=== PATIENT | female | born 1965 | race Caucasian/White ===

== ENCOUNTER → 2021-09-27 15:03 | Outpatient (BNVA) | payer OTHER, MEDICARE, SELFPAY | PROVIDERS: PCP Family Medicine | DX: N39.41 Urge incontinence (principal) | CPT/HCPCS: 51798; 99212 ==

== ENCOUNTER 2021-12-11 10:31 | Outpatient (REF) | payer OTHER, MEDICARE, SELFPAY ==
[2021-12-11 13:27] LABS: Binax Internal Control QC Valid; Binax Now Covid-19 Ag Negative (Negative)
== END 2021-12-11 10:32 | disposition home or self-care (01) ==
LOC: HO.LAB 10:31
PROVIDERS: Visit Provider Internal Medicine
DX: Z20.822 Contact with and (suspected) exposure to COVID-19 (principal)
CPT/HCPCS: C9803

== ENCOUNTER 2021-12-18 07:26 | Outpatient (REF) | payer OTHER, MEDICARE, SELFPAY ==
[2021-12-18 07:58] LABS: COVID-19 Test Negative (Negative)
== END 2021-12-18 07:27 | disposition home or self-care (01) ==
LOC: HO.LAB 07:26
PROVIDERS: Visit Provider Internal Medicine
DX: Z20.822 Contact with and (suspected) exposure to COVID-19 (principal)
CPT/HCPCS: 87635; C9803

== ENCOUNTER 2022-02-19 10:46 | Outpatient (REF) | payer OTHER, SELFPAY ==
--- NOTE | ~2022-02-19 | MM_ITS ---
EXAMINATION: BONE DENSITOMETRY CLINICAL INDICATION: Age-related osteoporosis without current pathological fracture. COMPARISON: Previous BD dated 01/04/2020 and baseline BD dated 03/17/2012. TECHNIQUE: Using a [employer] DXA System (software version: 13.1) manufactured by [employer], dual-energy x-ray absorptiometry was performed of the lumbar spine and left hip. The images are of good technical quality. Summary results are attached. FINDINGS: AP SPINE L1-L4: Current: BMD 0.799 g/cm2, Z-score -1.5, T-score -3.2, osteoporosis, 5.6% decrease from previous, 12.6% decrease from baseline (<5% change is not significant). Prior: BMD 0.846 g/cm2. Baseline: BMD 0.914 g/cm2. LEFT FEMUR, NECK: Current: BMD 0.618 g/cm2, Z-score -1.5, T-score -3.0, osteoporosis. Prior: BMD 0.574 g/cm2. Baseline: BMD 0.668 g/cm2. LEFT FEMUR, TOTAL: Current: BMD 0.599 g/cm2, Z-score -2.0, T-score -3.2, osteoporosis, 4.0% increase from previous, 0.7% increase from baseline (<5% change is not significant). Prior: BMD 0.576 g/cm2. Baseline: BMD 0.595 g/cm2. IDENTIFIED RISK FACTORS: Rheumatoid arthritis. Parental hip fracture. Menopause. Hysterectomy. Bilateral oophorectomy. HISTORY OF FRACTURE: None listed. MEDICATIONS: Vitamin D. MM/XR DEXA axial skeleton IMPRESSION: 1. DIAGNOSIS: Osteoporosis based on the lowest T-score value of -3.2 in the lumbar spine and total femur applying World Health Organization criteria. 2. 10-YEAR FRACTURE RISK PREDICTION, FRAX: Major osteoporotic fracture (clinical spine, forearm, hip or shoulder) 25.6%. Hip fracture 5.2%. 3. Treatment Recommendations: NOF guidelines recommend consideration for treatment in postmenopausal women and men age 50 and older presenting with the following: -A hip or vertebral (clinical or morphometric) fracture. -T-score less than or equal to -2.5 at the femoral neck or spine after appropriate evaluation to exclude secondary causes. -Low bone mass at the hip or spine and a 10-year fracture probability by FRAX of greater than or equal to 3% for hip fracture or greater than or equal to 20% for major osteoporotic fracture based on the [place] adapted WHO algorithm. 4. Other Recommendations: All treatment decisions require clinical judgment and consideration of individual patient factors, including patient preferences, comorbidities, previous drug use, risk factors not captured in the FRAX model (e.g. frailty, falls, vitamin D deficiency, increased bone turnover, interval significant decline in bone density) and possible under or overestimation of fracture risk by FRAX. Additional medical evaluation for secondary cause of low bone mineral density may be appropriate. FUTURE SCAN RECOMMENDATION: People with diagnosed cases of osteoporosis or at high risk for fracture should have regular bone mineral density tests. For patients eligible for Medicare, routine testing is allowed once every 2 years. The testing frequency can be increased to one year for patients who have rapidly progressing disease, those who are receiving or discontinuing medical therapy to restore bone mass, or have additional risk factors.
== END 2022-02-19 10:47 | disposition home or self-care (01) ==
LOC: HO.MAMMO 10:46
PROVIDERS: PCP Family Medicine; Visit Provider Family Medicine
DX: M81.8 Other osteoporosis without current pathological fracture (principal)
CPT/HCPCS: 77080

== ENCOUNTER 2022-05-26 14:46 | Emergency (ER) | payer MEDICARE, SELFPAY ==
--- NOTE | ~2022-05-26 | CT_ITS ---
EXAMINATION: CT ANGIOGRAM NECK WITH CONTRAST CT ANGIOGRAM BRAIN WITH CONTRAST CLINICAL INFORMATION: Left-sided weakness for 12 hours. COMPARISON: None. TECHNIQUE: Test bolus sequences followed by intravenous administration 100 mL of Omnipaque 350. Helical imaging was performed in the axial plane from the thoracic inlet to the skull vertex. Delayed postcontrast imaging of the head was also performed. The data was processed at the medical technologist chemistry workstation for generation of MIP sequences. Angled MIPs and volume rendered reformatted images were also generated at an offline 3D workstation. Stenoses are assessed in accordance with NASCET criteria unless otherwise indicated. This CT examination was performed using dose optimization techniques as appropriate, variously including the following: *Automated exposure control *Adjustment of mA and/or kV according to patient size (this includes techniques or standardized protocols for targeted exams where dose is matched to indication/reason for exam; i.e. extremities or head) *Use of iterative reconstruction technique DLP: 2047 mGy-cm FINDINGS: Head CT: There is no intracranial hemorrhage, large acute infarction, or mass lesion. The ventricles are normal in size and configuration without evidence of hydrocephalus. No abnormal enhancement is seen on the postcontrast images. The dural venous sinuses are normally opacified. The visualized paranasal sinuses and mastoid air cells are clear. Neck CTA: The major neck arteries are patent without stenosis or occlusion. Head CTA: There is no evidence of proximal vessel occlusion or significant arterial stenosis. No aneurysm is seen. Non-vascular findings: There is heterogeneous attenuation of the thyroid gland. The upper lungs are clear without significant consolidation. Pleural parenchymal thickening is seen at the left lung apex. The cervical spine is intact without significant degenerative changes. Esophagus is patulous and distended with air. CT/CT angio head neck IMPRESSION: No acute intracranial abnormality. Major head or neck arteries are patent without significant stenosis or occlusion.
[2022-05-26 14:54] VITALS: BP 148/88; PULSE 80; RESP 18; TEMP 36.8; O2SAT 97; BMI 17.4
[2022-05-26 15:05] LABS: MANUAL DIFF FLAG NO
[2022-05-26 15:12] LABS: Basophils Percent Auto 0.7 % (0-2); Eosinophils Absolute Auto 0.1 X10*3/uL (0.0-0.4); Hematocrit 43.3 % (37.0-47.0); Imm Gran Abs Auto 0.01 X10*3/uL (0.00-0.03); Imm Gran Pct Auto 0.2 % (0.0-0.4); Lymphocytes Absolute Auto 1.7 X10*3/uL (1.2-4.9); Lymphocytes Percent Auto 27.4 % (20-40); Mean Corpuscular HGB Conc 32.3 g/dl (31.0-35.0); Mean Corpuscular Hemoglobin 28.6 pg (27.0-33.0); Mean Corpuscular Volume 88.4 fL (80.0-98.0); Mean Platelet Volume 10.5 fL (9.4-12.3); Monocytes Absolute Auto 0.6 X10*3/uL (0.1-1.2); Neutrophils Absolute Auto 3.6 x10*3/uL (2.0-8.3); Neutrophils Percent Auto 59.7 % (45-73); Platelet Count 239 X10*3/uL (160-400); Red Cell Distribution Width 12.7 % (11.0-16.0); White Blood Count 6.1 X10*3/uL (4.8-10.8)
[2022-05-26 15:23] LABS: Anion Gap 14 (12-20); Blood Urea Nitrogen 14 mg/dL (9-16); Calcium 9.5 mg/dL (8.4-10.2); Carbon Dioxide 24 mmol/L (22-29); Chloride 106 mmol/L (96-108); Creatinine Clr Calc Pharmacy 60.1; Estimated Glomerular Filt Rate > 60; Glucose Random 97 mg/dL (60-115); Potassium 4.5 mmol/L (3.3-5.1); Sodium 139 mmol/L (135-145)
--- NOTE | 2022-05-26 15:54 | ED_ITS ---
HPI - Neuro Symptoms/Deficit General Chief Complaint: Neuro Symptoms/Deficit Stated Complaint: L hand weakness sent from urgent care Time Seen by Provider: 05/26/22 15:54 Source: patient Mode of arrival: ambulatory Limitations: no limitations History of Present Illness HPI Narrative: 56 yo female with hx of GERD, migraines, urinary incontinence comes in with c/o waking up around 5 am and her L hand doesn't work no other symptoms no trauma L hand no overuse activities all symptoms localized to L hand - she is R handed Onset (ago): hour(s) (woke up at 5am with symptoms) Location: other (L hand) History of same: No Severity: mild Quality: weak Relieving factors: none Exacerbating factors: none Context: sudden onset On Anticoagulants: No Associated symptoms: denies other symptoms Treatments Prior to Arrival: none Related Data Home Medications Medication Instructions Recorded Confirmed cholecalciferol (vitamin D3) 50 50 mcg PO DAILY 09/27/21 mcg (2,000 unit) capsule ibuprofen 800 mg tablet 800 mg PO DAILY PRN pain 09/27/21 omeprazole 20 mg capsule,delayed 20 mg PO DAILY 09/27/21 release oxycodone 5 mg tablet 5 mg PO BID PRN 09/27/21 pramipexole 0.5 mg tablet 0.5 mg PO TID 09/27/21 sumatriptan succinate 100 mg tablet 100 mg PO DIRECTED 09/27/21 sumatriptan succinate 50 mg tablet 50 mg PO 09/27/21 Previous Rx's Medication Instructions Recorded solifenacin 10 mg tablet (Vesicare) 10 mg PO DAILY 90 days #90 tabs 09/27/21 Allergies Allergy/AdvReac Type Severity Reaction Status Date / Time Penicillins [PENICILLINS] Allergy Intermediate RASH/SHAKES, Verified 09/27/21 15:19 hives amoxicillin [Prevpac] Allergy Unknown Unknown Verified 09/27/21 15:19 clarithromycin [Prevpac] Allergy Unknown Unknown Verified 09/27/21 15:19 lansoprazole [Prevpac] Allergy Unknown Unknown Verified 09/27/21 15:19 penicillin V Allergy Unknown hives and Verified 09/27/21 15:19 shakes tramadol Allergy Unknown Unknown Verified 09/27/21 15:19 Review of Systems Review of Systems: Constitutional : No Weight loss, No Fever, No Chills, No Fatigue, No Malaise ENT/Mouth : No sore throat, No Rhinorrhea Eyes: No Eye Pain, No Swelling, No Redness Cardiovascular : No Chest Pain, No SOB, No Dyspnea on Exertion, No Orthopnea, No Edema, No Palpitations Respiratory : No Cough, No Sputum, No Wheezing Gastrointestinal : No Nausea, No Vomiting, No Diarrhea, No Constipation, No abdominal Pain, No Hematochezia, No Melena Genitourinary : No Dysuria, No Urinary Frequency, No Hematuria, Musculoskeletal : No joint pain, No Myalgias, No Joint Swelling Skin : No Skin Lesions, No rash Neuro : pos Weakness, No Numbness, No Dizziness, No Headache Psych : No Anxiety/Panic, No Depression Heme/Lymph: No Bruising, No Bleeding,No Lymphadenopathy Endocrine : No Polyuria, No Polydipsia All other systems reviewed and are negative [facility] Past Medical History Medical History Abdominal hyperesthesia Anemia Breast cancer Constipation GERD (gastroesophageal reflux disease) Hematuria Seropositive rheumatoid arthritis Tubular adenoma of colon Surgical History History of surgery Social History Social History Alcohol intake: never Patient Tobacco Use Status: Never used Tobacco Advance Directives: No Advance Directives Information Provided: No Patient : No Physical Exam Vital Signs: Vital Signs: Last Vital Signs Temp 98.7 F 05/26/22 17:08 Pulse 76 05/26/22 17:08 Resp 14 05/26/22 17:08 BP 142/68 H 05/26/22 17:08 Pulse Ox 96 05/26/22 17:08 O2 Del Method 05/26/22 17:08 BMI result Body Mass Index 17.4 Appearance: Alert. Oriented X3. No acute distress. Eyes: Pupils equal, round and reactive to light. ENT: Pharynx normal. Neck: Normal inspection. Neck supple. CVS: Normal heart rate and rhythm. Pulses normal. Respiratory: No respiratory distress. Breath sounds normal. Abdomen: Soft and nontender. Skin: Skin warm and dry. Normal skin color. Normal skin turgor. Extremities: No lower extremity edema. No calf ttp Neuro: Oriented X 3. CN2-12 intact, gait normal, L hand wrist drop otherwise strength 5/5 weakness distal to wrist. No sensory deficit. Course Course Course Narrative: no acute findings. stable for DC - no evidence of stroke isolated to wrist seems peripheral will place on aspirin daily Procedures Orthopedic Splinting/Casting Injury #1: Side: left Upper Extremity Injury Location: wrist Upper Extremity Immobilizer: wrist splint MDM - Neuro Symptoms/Deficit MDM Narrative Medical decision making narrative: 56 yo female with hx of GERD, migraines, urinary incontinence comes in with c/o L hand weakness distal to the wrist it appears wrist drop in nature and more peripheral but no risk factors for this. Will obtain labs, EKG for afib, CTA for stroke. Dispo per results and findings. Lab Data Result diagrams: 05/26/22 15:01 05/26/22 15:01 Labs: Lab Results 05/26/22 05/26/22 Range/Units 15:01 15:01 WBC 6.1 (4.8-10.8) X10*3/uL RBC 4.90 (4.20-5.50) X10*6/uL Hgb 14.0 (12.0-16.0) g/dl Hct 43.3 (37.0-47.0) % MCV 88.4 (80.0-98.0) fL MCH 28.6 (27.0-33.0) pg MCHC 32.3 (31.0-35.0) g/dl RDW 12.7 (11.0-16.0) % Plt Count 239 (160-400) X10*3/uL MPV 10.5 (9.4-12.3) fL Immature Gran % (Auto) 0.2 (0.0-0.4) % Neut % (Auto) 59.7 (45-73) % Lymph % (Auto) 27.4 (20-40) % [place] % (Auto) 10.0 (2-11) % Eos % (Auto) 2.0 (0-4) % Baso % (Auto) 0.7 (0-2) % Lymph # (Auto) 1.7 (1.2-4.9) X10*3/uL [place] # (Auto) 0.6 (0.1-1.2) X10*3/uL Eos # (Auto) 0.1 (0.0-0.4) X10*3/uL Baso # (Auto) 0.0 (0.0-0.2) X10*3/uL Abs Immat Gran (auto) 0.01 (0.00-0.03) X10*3/uL Absolute Neuts (auto) 3.6 (2.0-8.3) x10*3/uL Absolute Nucleated RBC 0.000 (0.0-0.012) X10*3/uL Nucleated RBC % (auto) 0.0 (0.0-0.2) /100WBC Sodium 139 (135-145) mmol/L Potassium 4.5 (3.3-5.1) mmol/L Chloride 106 (96-108) mmol/L Carbon Dioxide 24 (22-29) mmol/L Anion Gap 14 (12-20) BUN 14 (9-16) mg/dL Creatinine 0.73 (0.5-1.4) mg/dL Estim Creat Clear Calc 60.1 Estimated GFR > 60 Random Glucose 97 (60-115) mg/dL Calcium 9.5 (8.4-10.2) mg/dL ECG Data Attestation: I personally reviewed and interpreted this ECG as follows: ECG interpretation date: 05/26/22 ECG interpretation time: 17:05 Interpretation: Rate: 69 Rhythm: NSR [place]: normal Normal P waves. Normal OLE. Normal QRS complex. ST T wave : no SOPHY, normal qTC: normal prior studies: no acute ischemia The study has been interpreted contemporaneously by me. . Discharge Plan Discharge Clinical Impression: Left wrist drop Patient Disposition: Home, Self-Care Instructions: Weakness (ED) Additional Instructions: return to ED for any worsening symptoms or concerns please follow up with a Neurologist wear splint for comfort please follow up with your doctor take 81mg aspirin daily Head CT: There is no intracranial hemorrhage, large acute infarction, or mass lesion. The ventricles are normal in size and configuration without evidence of hydrocephalus. No abnormal enhancement is seen on the postcontrast images. The dural venous sinuses are normally opacified. ? The visualized paranasal sinuses and mastoid air cells are clear. Neck CTA: The major neck arteries are patent without stenosis or occlusion. Head CTA: There is no evidence of proximal vessel occlusion or significant arterial stenosis. No aneurysm is seen. Non-vascular findings: There is heterogeneous attenuation of the thyroid gland. The upper lungs are clear without significant consolidation. Pleural parenchymal thickening is seen at the left lung apex. The cervical spine is intact without significant degenerative changes. Esophagus is patulous and distended with air. CT/CT angio head neck IMPRESSION: No acute intracranial abnormality. Major head or neck arteries are patent without significant stenosis or occlusion. Prescriptions: No Action solifenacin [Vesicare] 10 mg tablet 10 mg PO DAILY 90 Days Qty: 90 4RF Referrals: Edmar Payton MD [Primary Care Provider] - 05/27/22
--- NOTE | 2022-05-26 16:04 | ECG_ITS ---
Test Reason : WEAKNESS Blood Pressure : / mmHG Vent. Rate : 069 BPM Atrial Rate : 069 BPM P-R Int : 124 ms QRS Dur : 088 ms QT Int : 396 ms P-R-T Axes : 059 071 069 degrees QTc Int : 424 ms Normal sinus rhythm Normal ECG When compared with ECG of 31-JAN-2011 13:05, ST no longer depressed in Anterior leads Nonspecific T wave abnormality no longer evident in Inferior leads T wave inversion no longer evident in Anterior leads Referred By: Belkys Devlin Electronically Signed By:SERGO SANTOS
[2022-05-26 17:08] VITALS: BP 142/68; PULSE 76; RESP 14; TEMP 37.1; O2SAT 96
--- NOTE | 2022-05-26 17:10 | PC.NURSE ---
patient A/O X4 pupils equal and reactive . lungs clear . lungs clear . skin pink warm dry .abdomen soft and non-tender . bowel sounds in all four quadrants . patient presents c/o of weakness in left hand , loss of use happen when she woke up .No pain noted . no trauma to area , no redness or bruises . 20 gauge placed in left AC . patient placed on monitor . EKG done . provider read and aware . patient aware of plan of care .
[2022-05-26] MEDS: iohexoL 350 MG/ML 100 ML INFUS..BTL IV (18:10)
== END 2022-05-26 19:43 | disposition home or self-care (01) ==
PROVIDERS: Emergency Provider Emergency Medicine; PCP Family Medicine
DX: M21.332 Wrist drop, left wrist (principal)
CPT/HCPCS: 36415; 70496; 70498; 80048; 85025; 93005; 99284; Q9967

== ENCOUNTER → 2022-10-29 08:52 | Outpatient (BNVA) | payer MEDICARE, OTHER, SELFPAY | PROVIDERS: PCP Family Medicine; Referring Provider Family Medicine; Visit Provider Nurse Practitioner | DX: Z01.818 Encounter for other preprocedural examination (principal); D12.6 Benign neoplasm of colon, unspecified; K21.9 Gastro-esophageal reflux disease without esophagitis | CPT/HCPCS: 99202; 99212 ==

== ENCOUNTER → 2022-11-07 09:09 | Outpatient (BNVA) | payer MEDICARE, MEDICAID, SELFPAY | PROVIDERS: PCP Family Medicine; Visit Provider Urology | DX: N39.41 Urge incontinence (principal); N32.81 Overactive bladder | CPT/HCPCS: 51798; 99212 ==

== ENCOUNTER → 2022-12-11 12:33 | Outpatient (BNVA) | payer MEDICARE, MEDICAID, SELFPAY | PROVIDERS: PCP Family Medicine; Visit Provider Nurse Practitioner | DX: K21.9 Gastro-esophageal reflux disease without esophagitis (principal); D12.6 Benign neoplasm of colon, unspecified | CPT/HCPCS: 99212 ==

== ENCOUNTER 2023-02-25 08:07 | Day surgery (SDC) | payer MEDICARE, MEDICAID, SELFPAY ==
[2023-02-20 12:52] VITALS: BMI 17.7
--- NOTE | 2023-02-24 13:19 | P.CONAN_ITS ---
HPI - Anesthesia Eval Consult details Narrative: 57yo F for Upper Endoscopy and Colonoscopy [facility] Active Problems Active Problems: All Active Problems (Updated 11/25/22 @ 09:07 by Jarek Caballero MD) OAB (overactive bladder) (Acute) GERD (gastroesophageal reflux disease) (Acute) Pre-op examination (Acute) Tubular adenoma of colon (Acute) Migraines (Acute) Overactive bladder (Acute) Depression (Acute) Osteoporosis (Acute) Restless legs syndrome (Acute) Urge incontinence of urine (Acute) Past Medical History Medical History (Updated 02/25/23 @ 08:42 by Latoya Mccormick RN) Abdominal hyperesthesia Anemia Breast cancer Constipation GERD (gastroesophageal reflux disease) Hematuria Mitral valve stenosis Seropositive rheumatoid arthritis Tubular adenoma of colon Urge incontinence of urine Family History Family History Mother Ovarian cancer Colon cancer Lung cancer Paternal Grandmother Stomach cancer Paternal Aunt Tongue cancer Surgical History Surgical History H/O colonoscopy History of surgery Hx of tonsillectomy S/P breast lumpectomy Social History Social History Alcohol intake: never Patient Tobacco Use Status: Never used Tobacco Meds Allergies Allergy/AdvReac Type Severity Reaction Status Date / Time Penicillins [PENICILLINS] Allergy Intermediate RASH/SHAKES, Verified 12/11/22 12:45 hives amoxicillin [Prevpac] Allergy Unknown Hives Verified 02/25/23 08:17 clarithromycin [Prevpac] Allergy Unknown Hives Verified 02/25/23 08:17 lansoprazole [Prevpac] Allergy Unknown Hives Verified 02/25/23 08:17 penicillin V Allergy Unknown hives and Verified 12/11/22 12:45 shakes tramadol AdvReac Unknown Hallucinati Verified 02/25/23 08:16 ons Home Medications Medication Instructions Recorded Confirmed Last Taken Type cholecalciferol (vitamin D3) 50 50 mcg PO DAILY 09/27/21 11/07/22 Unknown History mcg (2,000 unit) capsule ibuprofen 800 mg tablet 800 mg PO DAILY PRN pain 09/27/21 11/07/22 Unknown History oxycodone 5 mg tablet 5 mg PO BID PRN 09/27/21 11/07/22 Unknown History pramipexole 0.5 mg tablet 0.5 mg PO TID 09/27/21 11/07/22 Unknown History sumatriptan succinate 100 mg tablet 100 mg PO DIRECTED 09/27/21 11/07/22 Unknown History alendronate 70 mg tablet 70 mg PO QWEEK 10/29/22 11/07/22 Unknown History fluoxetine 40 mg capsule 40 mg PO DAILY 11/07/22 11/07/22 Unknown History Exam Exam Date and Time: February 24, 2023 1319 Height,Weight and Vital Signs: Height 5 ft 3.5 in Weight 46.2 kg Narrative Narrative: EKG 05/2022 Vent. Rate : 069 BPM ? ? Atrial Rate : 069 BPM ?? P-R Int : 124 ms? QRS Dur : 088 ms ? ? QT Int : 396 ms ? ? ? P-R-T Axes : 059 071 069 degrees ?? QTc Int : 424 ms ? Normal sinus rhythm Normal ECG When compared with ECG of 31-JAN-2011 13:05, ST no longer depressed in Anterior leads Nonspecific T wave abnormality no longer evident in Inferior leads T wave inversion no longer evident in Anterior leads Assessment and Plan Assessment Anesthesia Assessment: Chart Reviewed
[2023-02-25 08:20] VITALS: BMI 17.6
--- NOTE | 2023-02-25 08:32 | HO.ANESPROP2 ---
[facility] Active Problems Active Problems: All Active Problems (Updated 11/25/22 @ 09:07 by Jarek Caballero MD) OAB (overactive bladder) (Acute) GERD (gastroesophageal reflux disease) (Acute) Pre-op examination (Acute) Tubular adenoma of colon (Acute) Migraines (Acute) Overactive bladder (Acute) Depression (Acute) Osteoporosis (Acute) Restless legs syndrome (Acute) Urge incontinence of urine (Acute) Past Medical History Medical History Abdominal hyperesthesia Anemia Breast cancer Constipation GERD (gastroesophageal reflux disease) Hematuria Mitral valve stenosis Seropositive rheumatoid arthritis Tubular adenoma of colon Urge incontinence of urine Functional capacity: independent ambulation Family History Family History Mother Ovarian cancer Colon cancer Lung cancer Paternal Grandmother Stomach cancer Paternal Aunt Tongue cancer Surgical History Surgical History H/O colonoscopy History of surgery Hx of tonsillectomy S/P breast lumpectomy History of Problems with Anesthesia: No Social History Social History Alcohol intake: never Patient Tobacco Use Status: Never used Tobacco Use of substances other than those prescribed or required for medical reasons: No Are you DNR?: No Advance Directives: No Advance Directives Information Provided: Yes Recently lost weight without trying: No Nutrition Risks: No Nutritional Risk Meds Allergies Allergy/AdvReac Type Severity Reaction Status Date / Time Penicillins [PENICILLINS] Allergy Intermediate RASH/SHAKES, Verified 12/11/22 12:45 hives amoxicillin [Prevpac] Allergy Unknown Hives Verified 02/25/23 08:17 clarithromycin [Prevpac] Allergy Unknown Hives Verified 02/25/23 08:17 lansoprazole [Prevpac] Allergy Unknown Hives Verified 02/25/23 08:17 penicillin V Allergy Unknown hives and Verified 12/11/22 12:45 shakes tramadol AdvReac Unknown Hallucinati Verified 02/25/23 08:16 ons Active Medications: Current Medications Lactated Ringer's (Lr) 1,000 mls @ 100 mls/hr IVCONT .Q10H MILADYS Home Medications Medication Instructions Recorded Confirmed Last Taken Type cholecalciferol (vitamin D3) 50 50 mcg PO DAILY 09/27/21 11/07/22 Unknown History mcg (2,000 unit) capsule ibuprofen 800 mg tablet 800 mg PO DAILY PRN pain 09/27/21 11/07/22 Unknown History oxycodone 5 mg tablet 5 mg PO BID PRN 09/27/21 11/07/22 Unknown History pramipexole 0.5 mg tablet 0.5 mg PO TID 09/27/21 11/07/22 Unknown History sumatriptan succinate 100 mg tablet 100 mg PO DIRECTED 09/27/21 11/07/22 Unknown History alendronate 70 mg tablet 70 mg PO QWEEK 10/29/22 11/07/22 Unknown History fluoxetine 40 mg capsule 40 mg PO DAILY 11/07/22 11/07/22 Unknown History Exam Exam Date and Time: February 25, 2023 0832 Height,Weight and Vital Signs: Height 5 ft 3.5 in Weight 45.813 kg Airway Mallampati Class: II TM Dist: >3cm Neck ROM: Full Heart: RRR Lungs: CTA Assessment and Plan Final Anesthetic Review History of Problems with Anesthesia: No NPO: Yes ASA Class: II Final Preanesthetic Review: Meds/Allgs Chart Reviewed, Consent Obtained/Reviewed and Anes Risks/Benef Reviewed Patient Risk: Low Procedure Risk: Low Anesthetic Plan Anesthetic Plan: MAC: Disposition: Standard PACU
[2023-02-25 08:33] VITALS: BP 135/73; PULSE 96; RESP 16; TEMP 36.5; O2SAT 97
[2023-02-25] MEDS: Lactated Ringers 1,000 ML 100 ML IVCONT (08:42)
--- NOTE | 2023-02-25 08:46 | P.HPSUR_ITS ---
Pre-Procedural Eval Section A Date of Service: 02/25/23 Section B Chief Complaint: Benign neoplasm of colon,GERD Relevant Family History (Specify if Yes): No Relevant Social History: None Present Medications: see Short Stay Collaborative assessment Medical History: Significant History (Abdominal hyperesthesia Anemia Breast cancer Constipation GERD (gastroesophageal reflux disease) Hematuria Mitral valv e stenosis Seropositive rheumatoid arthritis Tubular adenoma of colon Urge incontinence of urine) History of Previous Operations: Relevant previous surgery/procedure and date(s) (H/O colonoscopy History of surgery Hx of tonsillectomy S/P breast lumpectomy) Allergies: Allergies Allergy/AdvReac Type Severity Reaction Status Date / Time Penicillins [PENICILLINS] Allergy Intermediate RASH/SHAKES, Verified 12/11/22 12:45 hives amoxicillin [Prevpac] Allergy Unknown Hives Verified 02/25/23 08:17 clarithromycin [Prevpac] Allergy Unknown Hives Verified 02/25/23 08:17 lansoprazole [Prevpac] Allergy Unknown Hives Verified 02/25/23 08:17 penicillin V Allergy Unknown hives and Verified 12/11/22 12:45 shakes tramadol AdvReac Unknown Hallucinati Verified 02/25/23 08:16 ons Review of Systems Sugical H&P ROS: Negative: Constitution, Cardiovascular, Respiratory, Neurological, Psychiatric, Hem-Onc, Allergic/Immunologic, Gastrointestinal, Genitourinary, Musculoskeletal, Integumentary, Endocrine and Eyes/Ears/Nose/Throat Exam Surgical H&P Exam: Normal: HEENT, Normal: Heart, Normal: Lungs, Normal: Extremities, Normal: Abdomen, Normal: Skin and Normal: Neurological Plan Diagnosis/Plan: Unchanged I have reviewed the history and physical and performed a pertinent physical examination on my patient. No changes have occurred unless specified. Time Spent With Patient Time: Total time managing care of this patient today ____ minutes.
[2023-02-25 09:33] VITALS: BP 86/36; PULSE 72; RESP 16; TEMP 36.3; O2SAT 97
--- NOTE | 2023-02-25 09:33 | P.OP_ITS ---
Operative Note Operative Note Date of Service: 02/25/23 Narrative: Operative Information Procedure Description: EGD, Colonoscopy Indication: GERd, hx of colon polyps Anesthesia: MAC FLEXIBLE TRANSORAL UPPER GASTROINTESTINAL ENDOSCOPY AND COLONOSCOPY PROCEDURE NOTE UPPER ENDOSCOPY Consent: Indications for the procedure and potential complications of bleeding, perforation, reaction to medications and missed diagnosis were discussed with the patient and informed consent was obtained. Instrument: Olympus GIF H 190 J mid size upper endoscope Monitoring: Vital signs and clinical assessment, continuous EKG monitoring, Pulse oximetry, Carbon Dioxide monitoring and blood pressure monitoring were done throughout the procedure. Procedure: The patient was placed in the left lateral decubitis position and pre-procedure medications were administered and a bite block was placed. The endoscope was inserted into the mouth and advanced under direct vision to the third part of duodenum. A careful inspection was made as the upper endoscope was withdrawn including a retroflexed examination of the proximal stomach; Findings and interventions are described below. Findings: Larynx:normal, some bilious fluid around vocal cords Esophagus: GE junction at 40 cm, diaphragm hiatus at 40 cm, tertiary contractions noted (dysmotility)--bx taken from distal and proximal esophagus Stomach: Normal mucosa with bile noted in the stomach. Biopsies were obtained. Grade 3 flap valve on retroflexed examination of the cardia with lax and incompetent LES Duodenum: flattened mucosa and cobble stone pattern janis in bulb, bx taken incl for amyloid staining. Intervention: Biopsies as noted above COLONOSCOPY Instrument: Olympus variable stiffness pediatric scope 190L Colonoscopy Monitoring: Vital signs and clinical assessment, continuous EKG monitoring, Pulse oximetry, Carbon Dioxide monitoring and blood pressure monitoring were done throughout the procedure. Colon withdrawal time was 7 minutes. Procedure: The patient was placed in the left lateral decubitis position and pre-procedure medications were administered. After a digital rectal examination of the ano-rectum, the video colonoscope was inserted into the rectum and advanced through the colon to the cecum/TI. The colonoscope was slowly withdrawn in a retrograde panoramic fashion and the colon mucosa was carefully examined including a retroflexed view of the rectum. Findings and interventions are described below. Procedure Difficulty:moderate due to redundant colon Findings: Terminal Ileum-normal Cecum:normal Ascending Colon: normal Transverse Colon - proximal area with 10 mm sessile polyp removed with cold snare Descending Colon:normal Sigmoid Colon: normal Rectum: Retroflexion with small internal hemorrhoids, grade I Anorectum - normal Colon preparation: [place] Bowel Preparation Scale Right colon; 2 Transverse colon: 2 Left colon; 2 (0 = Unprepared colon segment with mucosa not seen due to solid stool that cannot be cleared. 1 = Portion of mucosa of the colon segment seen, but other areas of the colon segment not well seen due to staining, residual stool and/or opaque liquid. 2 = Minor amount of residual staining, small fragments of stool and/or opaque liquid, but mucosa of colon segment seen well. 3 = Entire mucosa of colon segment seen well with no residual staining, small fragments of stool or opaque liquid) Impression and Post Procedure Diagnosis: Endoscopy Findings: incompetent LES bile acid reflux small bowel enteropathy Colonoscopy Findings: polyp internal hemorrhoids Plan: Await Pathology results Repeat Colonoscopy in 5 years due to adenomatous appearing polyp or earlier if clinically indicated High fiber diet leaflet avoid straining at stool, epsom salts and sitz bath, anusol supps or cream can consider surgical referral, may benefit from fundoplication, vs medical mx with baclofen, reglan or ARAT (anti reflux ablation therapy) Above findings were reviewed with the patient and relevant handouts were provided if indicated.
[2023-02-25 09:57] VITALS: BP 108/65; PULSE 72; RESP 18; TEMP 36.3; O2SAT 98
--- NOTE | 2023-02-25 10:17 | HO.POSTANES ---
Post Anesthesia Evaluation Post Anesthesia Evaluation Vital Signs: Vital Signs Temp Pulse Resp BP Pulse Ox O2 Del Method 02/25/23 09:57 97.4 F 72 18 108/65 98 Room Air 02/25/23 09:33 97.4 F 72 16 86/36 L 97 Room Air 02/25/23 08:33 97.7 F 96 16 135/73 97 Room Air Anesthesia: Monitored Mental Status: Awake Pain Control: Satisfactory Nausea/Vomiting: None Hydration: Adequate Anesthesia-Related Issues: No Anes. Related Issues
== END 2023-02-25 10:17 | disposition home or self-care (01) ==
PROVIDERS: PCP Family Medicine; Visit Provider Internal Medicine Gastroenterology
PROC: (CPT 45385; principal; 2023-02-25 09:10)
DX: Z12.11 Encounter for screening for malignant neoplasm of colon (principal); Z86.010 Personal history of colon polyps; D12.3 Benign neoplasm of transverse colon; K64.0 First degree hemorrhoids; K59.00 Constipation, unspecified; K63.89 Other specified diseases of intestine; K21.9 Gastro-esophageal reflux disease without esophagitis; K22.4 Dyskinesia of esophagus; K44.9 Diaphragmatic hernia without obstruction or gangrene; D64.9 Anemia, unspecified; M81.0 Age-related osteoporosis without current pathological fracture; M05.9 Rheumatoid arthritis with rheumatoid factor, unspecified; I05.0 Rheumatic mitral stenosis; Z85.3 Personal history of malignant neoplasm of breast; Z88.0 Allergy status to penicillin; Z88.1 Allergy status to other antibiotic agents; Z88.8 Allergy status to other drugs, medicaments and biological substances; Z79.899 Other long term (current) drug therapy; Z98.890 Other specified postprocedural states
CPT/HCPCS: 45385; 43239; 88305; 88313; 88342

== ENCOUNTER → 2023-03-21 11:58 | Outpatient (BNVA) | payer MEDICARE, MEDICAID, SELFPAY | PROVIDERS: PCP Family Medicine; Visit Provider Nurse Practitioner | DX: K21.9 Gastro-esophageal reflux disease without esophagitis (principal); D12.6 Benign neoplasm of colon, unspecified | CPT/HCPCS: 99212 ==

== ENCOUNTER 2023-04-17 15:36 | Outpatient (REF) | payer MEDICARE, MEDICAID, SELFPAY ==
[2023-04-17 16:29] LABS: Appearance Urine Clear; Color Urine Dark Yellow; Glucose Urine UA Negative (Negative); Leukocyte Esterase Urine Small (1+) (Negative); Nitrite Urine Negative (Negative); PH 5.5 (5.0-9.0); Specific Gravity - Urine >= 1.030 (1.005-1.025); UMIC TRIGGER UA YES; Urine Blood Negative (Negative); Urine Ketones Trace mg/dL (Negative); Urine Protein Negative (Neg-Trace)
[2023-04-17 17:05] LABS: Bacteria Urine None Seen (None Seen); Hyaline Casts Urine 0-2 /LPF (0-2); RBC Urine 0-2 /HPF (0-2); Squamous Epithelial Cell Urine 0-2 /HPF (0-2); WBC Urine 0-5 /HPF (0-5)
== END 2023-04-17 15:37 | disposition home or self-care (01) ==
LOC: HO.LAB 15:36
PROVIDERS: PCP Family Medicine; Visit Provider Urology
DX: N39.41 Urge incontinence (principal)
CPT/HCPCS: 81001; 87086; 87147

== ENCOUNTER 2023-04-24 08:44 | Outpatient (REF) | payer MEDICARE, MEDICAID, SELFPAY ==
--- NOTE | ~2023-04-24 | FL_ITS ---
EXAMINATION: FL BARIUM SWALLOW CLINICAL INFORMATION: Gastroesophageal reflux disease. COMPARISON: Report only of 03/04/2006. TECHNIQUE: Barium swallow examination is performed using fluoroscopic evaluation in addition to multiple fluoroscopic spot views. The patient is imaged both upright and prone and using both thick and thin sulfate along with half-inch diameter barium tablet. Fluoroscopy time: 2.1 minutes DAP: 1.089 Gy-cm2 Images: 56 FINDINGS: There is normal apposition of the vocal cords while saying E. There is normal elevation of the soft palate while saying candy. Patient was unable to swallow half-inch diameter barium tablet. Patient swallowed thin and thick barium without evidence of nasopharyngeal reflux or tracheal aspiration. No Zenker's diverticulum or significant cricopharyngeal hypertrophy was present. There is essentially amotility with patient being prone or supine. There was gastroesophageal reflux present spontaneously which again did not clear due to lack of normal motility. No definite mucosal ulceration was seen. No hiatal hernia was noted. No persistent stricture. FL/FL barium swallow IMPRESSION: Severe hypomotility of the esophagus with gastroesophageal reflux. Patient was unable to swallow half-inch diameter barium tablet during this study.
== END 2023-04-24 08:45 | disposition home or self-care (01) ==
LOC: HO.XRAY 08:44
PROVIDERS: PCP Family Medicine; Visit Provider Nurse Practitioner
DX: K21.9 Gastro-esophageal reflux disease without esophagitis (principal)
CPT/HCPCS: 74220

== ENCOUNTER → 2023-05-27 13:06 | Outpatient (BNVA) | payer MEDICARE, MEDICAID, SELFPAY | PROVIDERS: PCP Family Medicine; Visit Provider Nurse Practitioner | DX: K21.9 Gastro-esophageal reflux disease without esophagitis (principal); K22.4 Dyskinesia of esophagus; Z86.010 Personal history of colon polyps | CPT/HCPCS: 99212 ==

== ENCOUNTER 2023-06-13 13:20 | Outpatient (AMB) | payer MEDICARE, MEDICAID, SELFPAY ==
--- NOTE | 2023-06-13 13:32 | MHC.OFFVIS ---
Intake Vital Signs 06/13/23 13:34 Height 5 ft 3.5 in Weight 94 lb 12.78 oz BMI 16.5 BP 138/65 Blood Pressure Location Lt brachial Position Sitting Pulse 68 Intake Visit Reasons: 3 week f/u Eval Reglan Intake Note: Madeline presents in the office as a follow up for 3 weeks to darshana juanjo. CC: She states that she does not see a difference. Still getting chest pains. She did not know she was broke so it is hard to see if it is working or not. Allergies Penicillins [PENICILLINS] Allergy (Intermediate, Verified 06/13/23 13:34) RASH/SHAKES, hives amoxicillin [Prevpac] Allergy (Unknown, Verified 06/13/23 13:34) Hives clarithromycin [Prevpac] Allergy (Unknown, Verified 06/13/23 13:34) Hives lansoprazole [Prevpac] Allergy (Unknown, Verified 06/13/23 13:34) Hives penicillin V Allergy (Unknown, Verified 06/13/23 13:34) hives and shakes tramadol Adverse Reaction (Unknown, Verified 06/13/23 13:34) Hallucinations HPI 3 week f/u Eval Reglan HPI Details Assessment & Plan (1) Hypotensive esophageal peristalsis: ?Code(s): K22.4 - Dyskinesia of esophagus ?Plan: She is here today with her dtr, Arianna. She has not tried the reglan was concerned re: s/e. Discussed and she will try.? We again discussed the possibility of a Alex find but that this is an extensive surgery and more banal? interventions such as putting blocks under the head of the bed.? We also reviewed safe swallowing precautions including chewing things thoroughly, cutting food in small portions, eating slowly and/or eating a soft diet to avoid choking. . ROV 2-3 weeks. (2) GERD (gastroesophageal reflux disease): ?Code(s): K21.9 - Gastro-esophageal reflux disease without esophagitis (3) Tubular adenoma of colon: ?Comment: 2018 scope equals 2 TA, 2022 scope equals TA repeat in 5 years ?Code(s): D12.6 - Benign neoplasm of colon, unspecified CORRESPONDENCE On 05/01/23 @ 11:06 Gladis Gilman Wrote To SerenaMarch patient is agreeable to trial the Reglan in the meantime, please send script. I scheduled her for a follow up towards the end of May since she wants to discuss the surgery with you. thanks! On 05/01/23 @ 10:57 Aleyda Lyons Wrote To Gladis Gilman She has a severe lack of movement in her esophagus. We can try reglan to see if this stimulates the smooth muscles, but she may REALLY need to consider sugery for this. She should see me sooner than August. On 05/01/23 @ 08:57 Gladis Gilman Wrote To SerenaMarch patient called requesting barium swallow results. please advise and I will give her a call back On 04/25/23 @ 07:55 Aleyda Lyons Wrote To Serena Aleyda Lyons completed item. TODAY'S VISIT Medication Orders metoclopramide HCl 5 mg PO QIDACHS 12 0 tabs 3RF New She has not seen any difference with the CP or swallowing with the reglan at 5mg, also no s/e. Will try increasing. Could consider esophageal manometry and or nissin fund going forward. We will try increasing to 10mg tid. She had some concerns re: her RLS and the reglan. I educate her that the tremor/restlessness is extremely rare side effect that tends to only happened doses over 60-80 mg a day, but we can always go by how she responds. We discuss OTC iron pill as possible tx for restless leg as there was some research that shows that low iron in the cerebral spinal fluid worsens this however if her RLS worsens with the Reglan she can stop, janis if not helping her swallowing/cp. ROV 4 weeks. [facility] Medical History Abdominal hyperesthesia Anemia Breast cancer Constipation GERD (gastroesophageal reflux disease) Hematuria Mitral valve stenosis Seropositive rheumatoid arthritis Tubular adenoma of colon Urge incontinence of urine Surgical History H/O colonoscopy History of surgery Hx of tonsillectomy S/P breast lumpectomy Family History Mother Ovarian cancer Colon cancer Lung cancer Paternal Grandmother Stomach cancer Paternal Aunt Tongue cancer Social History Alcohol intake: never Patient Tobacco Use Status: Never used Tobacco Review of Systems Const Denies fatigue, Denies fever(s), Denies night sweats, Denies poor appetite and Denies weight loss ENT Reports Normal hearing present, Denies dental pain, Reports dysphagia, Denies hearing loss, Denies mouth pain, Denies odynophagia, Denies throat swelling, Denies tongue swelling and Reports other (Dentition adequate) Card Reports no additional complaints Resp Reports no additional complaints GI Denies abdominal pain, Denies melena, Denies bloating, Denies hematochezia, Denies constipation, Denies GI cramping, Reports dysphagia, Denies excessive flatus, Denies early satiety, Reports heartburn, Denies diarrhea, Denies nausea, Denies odynophagia, Denies vomiting and Denies hematemesis Skin/Breast Denies pruritus, Denies lesions, Denies rash and Denies jaundice Neuro Reports Normal hearing present, Denies Abnormal speech present and Reports restless legs Endo Denies fatigue Aller/Immun Denies throat swelling and Denies tongue swelling Physical Exam Vital Signs: Last Vital Signs Pulse 68 06/13/23 13:34 BP 138/65 06/13/23 13:34 BMI result Body Mass Index 16.5 Const General: cooperative, no acute distress, well developed and well groomed Nutritional Appearance: average body habitus and well nourished Orientation/consciousness: oriented to person, oriented to place and oriented to time Limitations: No language barrier and ambulation with cane HEENT Head: Yes normocephalic and Yes atraumatic Eyes General: appearance normal, both eyes and all related structures Pupils: Equal, round and reactive pupils present Neck Neck: Yes normal visual inspection and Yes no lymphadenopathy Thyroid: Thyroid normal Resp Effort & Inspection: normal respiratory effort and able to speak in complete sentences Auscultation: clear to auscultation bilaterally Cardio Rate: regular rate Rhythm: regular rhythm Heart sounds: Normal, physiologic split S2 sound present Peripheral pulses: radial pulses present and posterior tibial pulses present GI Inspection: No distended and No Abdominal panniculus present Palpation (GI): Soft to palpation, nontender, no guarding, not rigid and No hepatosplenomegaly present Percussion: Yes normal to percussion Auscultation: normal bowel sounds Rectal Exam - Female: deferred Skin General skin exam: no rashes or lesions noted, turgor normal, skin not dry, no jaundice, No spider nevi and no striae Rashes: no rashes Nails: normal Neuro General: oriented to person, oriented to place and oriented to time Cranial nerves: Yes Equal, round and reactive pupils present and Yes Normal hearing present Speech: No Abnormal speech present Extrem General: Yes normal to inspection, No clubbing, No cyanosis and No edema Psych Appearance: grossly normal and well kempt Mental Status: mental status grossly normal Speech and movement: Normal speech and movement present Affect: normal affect Attitude: cooperative Thought process: Normal thought process present and not confabulating Thought content: Normal thought content present Insight: Fair insight present (Psych) Judgement: Fair judgement present (Psych) Assessment & Plan Assessment & Plan (1) Hypotensive esophageal peristalsis: Code(s): K22.4 - Dyskinesia of esophagus Plan: She has not seen any difference with the CP or swallowing with the reglan at 5mg, also no s/e. Will try increasing. Could consider esophageal manometry and or nissin fund going forward. We will try increasing to 10mg tid. She had some concerns re: her RLS and the reglan. I educate her that the tremor/restlessness is extremely rare side effect that tends to only happened doses over 60-80 mg a day, but we can always go by how she responds. We discuss OTC iron pill as possible tx for restless leg as there was some research that shows that low iron in the cerebral spinal fluid worsens this however if her RLS worsens with the Reglan she can stop, janis if not helping her swallowing/cp. ROV 4 weeks. . (2) GERD (gastroesophageal reflux disease): Code(s): K21.9 - Gastro-esophageal reflux disease without esophagitis Medications: New metoclopramide HCl (Reglan) provider aware of possible interaction with prozac and is monitoring 10 mg PO .tidac 90 tabs 3RF K22.4 - Dyskinesia of esophagus Discontinued metoclopramide HCl Provider aware of possible interactions and is monitoring Discontinued Reason: Doctor's Order 5 mg PO QIDACHS 120 tabs 3RF K22.4 - Dyskinesia of esophagus Coding Level of Care Code Est Pt Level 3 (87597) Diagnoses Hypotensive esophageal peristalsis K22.4 GERD (gastroesophageal reflux disease) K21.9
[2023-06-13 13:34] VITALS: BP 138/65; PULSE 68; BMI 16.5
== END 2023-06-13 14:15 | disposition home or self-care (01) ==
PROVIDERS: PCP Family Medicine; Visit Provider Nurse Practitioner
DX: K22.4 Dyskinesia of esophagus (principal); K21.9 Gastro-esophageal reflux disease without esophagitis
CPT/HCPCS: 99213

== ENCOUNTER → 2023-06-13 13:20 | Outpatient (BNVA) | payer MEDICARE, MEDICAID, SELFPAY | PROVIDERS: PCP Family Medicine; Visit Provider Nurse Practitioner | DX: K22.4 Dyskinesia of esophagus (principal); K21.9 Gastro-esophageal reflux disease without esophagitis | CPT/HCPCS: 99212 ==

== ENCOUNTER 2023-07-11 13:23 | Outpatient (AMB) | payer MEDICARE, MEDICAID, SELFPAY ==
--- NOTE | 2023-07-11 13:26 | A.OFFVIS_ITS ---
Intake Vital Signs 07/11/23 13:47 Height 5 ft 3.5 in Weight 95 lb 10.89 oz BMI 16.7 BP 135/61 Blood Pressure Location Lt brachial Position Sitting Pulse 71 Intake Visit Reasons: 4 week follow up Intake Note: Madeline presents in the office as a follow up for 3 weeks to darshana geiger. CC: She c/o chest pain, nausea, GERD. She sates she does not see any difference with medication. Denies other GI symptoms today. 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 Required: No Accompanied by: Self / Same As Patient Allergies Penicillins [PENICILLINS] Allergy (Intermediate, Verified 07/11/23 13:51) RASH/SHAKES, hives amoxicillin [Prevpac] Allergy (Unknown, Verified 07/11/23 13:51) Hives clarithromycin [Prevpac] Allergy (Unknown, Verified 07/11/23 13:51) Hives lansoprazole [Prevpac] Allergy (Unknown, Verified 07/11/23 13:51) Hives penicillin V Allergy (Unknown, Verified 07/11/23 13:51) hives and shakes tramadol Adverse Reaction (Unknown, Verified 07/11/23 13:51) Hallucinations HPI 4 week follow up HPI Details Assessment & Plan (1) Hypotensive esophageal peristalsis: ?Code(s): K22.4 - Dyskinesia of esophagus (2) GERD (gastroesophageal reflux disease): ?Code(s): K21.9 - Gastro-esophageal reflux disease without esophagitis ? ? ? Medications: New metoclopramide HCl (Reglan) ?? provi erin aware of possi ble interaction wi th prozac and is m onitoring 10 mg? PO .tidac 9 0 tabs 3RF K22.4 - Dyskinesia of esophagus ? Discontinued metoclopramide HCl (Reglan) ?? Provi erin aware of possi ble interactions a nd is monitoring ? ? Discontinued Susana son:? Doctor's Ord er 5 mg? PO QIDACHS 1 20 tabs 3RF K22.4 - Dyskinesia of esophagus ? TODAY'S VISIT . We have tried all of the options available to try to get her esophagus moving better and she has failed medical management. She is quite anxious about the possibility of choking. She also does not put on weight well and has trouble meeting her nutritional needs because of the limitations and with swallowing. She is much more complex than we are prepared to handle here and she may even need some sort of surgery like a Alex fundoplication. I am going to refer her to a tertiary center, specifically [facility] to see what options are available for treatment since they seem more complex cases. I explained this to her and she is agreeable to seeing them. She continues on pantoprazole and famotidine for GERD and she can either take or not take the Reglan since she was uncertain that it really had any good effect. I will leave this up to her. Return office visit in 6 weeks [facility] Medical History Abdominal hyperesthesia Anemia Breast cancer Constipation GERD (gastroesophageal reflux disease) Hematuria Mitral valve stenosis Seropositive rheumatoid arthritis Tubular adenoma of colon Urge incontinence of urine Surgical History H/O colonoscopy History of surgery Hx of tonsillectomy S/P breast lumpectomy Family History Mother Ovarian cancer Colon cancer Lung cancer Paternal Grandmother Stomach cancer Paternal Aunt Tongue cancer Social History Alcohol intake: never Patient Tobacco Use Status: Never used Tobacco Review of Systems Const Denies fatigue, Denies fever(s), Denies night sweats, Denies poor appetite and Reports weight loss ENT Reports Normal hearing present, Denies dental pain, Reports dysphagia, Denies hearing loss, Denies mouth pain, Reports odynophagia, Denies throat swelling, Denies tongue swelling and Reports other (Dentition adequate) Card Reports no additional complaints Resp Reports no additional complaints GI Denies abdominal pain, Denies melena, Denies bloating, Denies hematochezia, Denies constipation, Denies GI cramping, Reports dysphagia, Denies excessive flatus, Denies early satiety, Reports heartburn, Denies diarrhea, Denies nausea, Reports odynophagia, Denies vomiting and Denies hematemesis Skin/Breast Denies pruritus, Denies lesions, Denies rash and Denies jaundice Neuro Reports Normal hearing present and Denies Abnormal speech present Endo Denies fatigue Aller/Immun Denies throat swelling and Denies tongue swelling Physical Exam Vital Signs: Last Vital Signs Pulse 71 07/11/23 13:47 BP 135/61 07/11/23 13:47 BMI result Body Mass Index 16.7 Const General: cooperative, no acute distress, well developed and well groomed Nutritional Appearance: well nourished and underweight Orientation/consciousness: oriented to person, oriented to place and oriented to time Limitations: No language barrier HEENT Head: Yes normocephalic and Yes atraumatic Eyes General: appearance normal, both eyes and all related structures Pupils: Equal, round and reactive pupils present Neck Neck: Yes normal visual inspection and Yes no lymphadenopathy Thyroid: Thyroid normal Resp Effort & Inspection: normal respiratory effort and able to speak in complete sentences Auscultation: clear to auscultation bilaterally Cardio Rate: regular rate Rhythm: regular rhythm Heart sounds: Normal, physiologic split S2 sound present Peripheral pulses: radial pulses present and posterior tibial pulses present GI Inspection: No distended and No Abdominal panniculus present Palpation (GI): Soft to palpation, nontender, no guarding, not rigid and No hepatosplenomegaly present Percussion: Yes normal to percussion Auscultation: normal bowel sounds Rectal Exam - Female: deferred Skin General skin exam: no rashes or lesions noted, turgor normal, skin not dry, no jaundice, No spider nevi and no striae Rashes: no rashes Nails: normal Neuro General: oriented to person, oriented to place and oriented to time Cranial nerves: Yes Equal, round and reactive pupils present and Yes Normal hearing present Speech: No Abnormal speech present Extrem General: Yes normal to inspection, No clubbing, No cyanosis and No edema Psych Appearance: grossly normal and disheveled Mental Status: mental status grossly normal Speech and movement: Normal speech and movement present Affect: Anxious affect present Attitude: cooperative Thought process: not confabulating and Impoverished thought process present Thought content: Normal thought content present Insight: Poor insight present (Psych) Judgement: Poor judgement present (Psych) Assessment & Plan Assessment & Plan (1) Hypotensive esophageal peristalsis: Code(s): K22.4 - Dyskinesia of esophagus Plan: We have tried all of the options available to try to get her esophagus moving better and she has failed medical management. She is quite anxious about the possibility of choking. She also does not put on weight well and has trouble meeting her nutritional needs because of the limitations and with swallowing. She is much more complex than we are prepared to handle here and she may even need some sort of surgery like a Alex fundoplication. I am going to refer her to a tertiary center, specifically [facility] to see what options are available for treatment since they seem more complex cases. I explained this to her and she is agreeable to seeing them. She continues on pantoprazole and famotidine for GERD and she can either take or not take the Reglan since she was uncertain that it really had any good effect. I will leave this up to her. Return office visit in 6 weeks (2) GERD (gastroesophageal reflux disease): Code(s): K21.9 - Gastro-esophageal reflux disease without esophagitis Orders: Referrals Gastroenterology Referral K22.4 - Dyskinesia of esophagus Coding Level of Care Code Est Pt Level 3 (45436) Diagnoses Hypotensive esophageal peristalsis K22.4 GERD (gastroesophageal reflux disease) K21.9
[2023-07-11 13:47] VITALS: BP 135/61; PULSE 71; BMI 16.7
== END 2023-07-11 14:25 | disposition home or self-care (01) ==
PROVIDERS: PCP Family Medicine; Visit Provider Nurse Practitioner
DX: K22.4 Dyskinesia of esophagus (principal); K21.9 Gastro-esophageal reflux disease without esophagitis
CPT/HCPCS: 99213

== ENCOUNTER → 2023-07-11 13:23 | Outpatient (BNVA) | payer MEDICARE, MEDICAID, SELFPAY | PROVIDERS: PCP Family Medicine; Visit Provider Nurse Practitioner | DX: K22.4 Dyskinesia of esophagus (principal); K21.9 Gastro-esophageal reflux disease without esophagitis | CPT/HCPCS: 99212 ==

== ENCOUNTER 2023-08-22 14:00 | Outpatient (AMB) | payer MEDICARE, MEDICAID, SELFPAY ==
[2023-08-22 14:06] VITALS: BP 111/56; PULSE 77; BMI 15.9
--- NOTE | 2023-08-22 14:06 | MHC.OFFVIS ---
Intake Vital Signs 08/22/23 14:06 Height 5 ft 3.5 in Weight 91 lb BMI 15.9 BP 111/56 L Blood Pressure Location Lt brachial Position Sitting Pulse 77 Intake Visit Reasons: 6 week follow up Allergies Penicillins [PENICILLINS] Allergy (Intermediate, Verified 08/22/23 14:05) RASH/SHAKES, hives amoxicillin [Prevpac] Allergy (Unknown, Verified 08/22/23 14:05) Hives clarithromycin [Prevpac] Allergy (Unknown, Verified 08/22/23 14:05) Hives lansoprazole [Prevpac] Allergy (Unknown, Verified 08/22/23 14:05) Hives penicillin V Allergy (Unknown, Verified 08/22/23 14:05) hives and shakes tramadol Adverse Reaction (Unknown, Verified 08/22/23 14:05) Hallucinations HPI 6 week follow up HPI Details Assessment & Plan (1) Hypotensive esophageal peristalsis: Code(s): K22.4 - Dyskinesia of esophagus Plan: We have tried all of the options available to try to get her esophagus moving better and she has failed medical management. She is quite anxious about the possibility of choking. She also does not put on weight well and has trouble meeting her nutritional needs because of the limitations and with swallowing. She is much more complex than we are prepared to handle here and she may even need some sort of surgery like a Alex fundoplication. I am going to refer her to a tertiary center, specifically [facility] to see what options are available for treatment since they seem more complex cases. I explained this to her and she is agreeable to seeing them. She continues on pantoprazole and famotidine for GERD and she can either take or not take the Reglan since she was uncertain that it really had any good effect. I will leave this up to her. Return office visit in 6 weeks (2) GERD (gastroesophageal reflux disease): Code(s): K21.9 - Gastro-esophageal reflux disease without esophagitis Orders: Referrals Gastroenterology R richard K22.4 - Dyskinesia of esophagus TODAY'S VISIT She has not yet been seen at [facility] as they are booking out to March 2024. She is on a wait list. She is not taking the reglan, as it did not help her much. She suffers continued CIC, on LInzess in the distant past, will restart at 145mcg and titrate. Continued care in swallowing needs to be practiced!! ROV 4 weeks. All notes re: her condition printed for her to take [place] [facility] [facility] Medical History (Reviewed 07/11/23 @ 13:53 by William Melchor [facility]) Abdominal hyperesthesia Anemia Breast cancer Constipation GERD (gastroesophageal reflux disease) Hematuria Mitral valve stenosis Seropositive rheumatoid arthritis Tubular adenoma of colon Urge incontinence of urine Surgical History H/O colonoscopy S/P breast lumpectomy Hx of tonsillectomy History of surgery Family History Mother Ovarian cancer Colon cancer Lung cancer Paternal Grandmother Stomach cancer Paternal Aunt Tongue cancer Social History Alcohol intake: never Patient Tobacco Use Status: Never used Tobacco Review of Systems Const Denies fatigue, Denies fever(s), Denies night sweats, Denies poor appetite and Denies weight loss ENT Reports Normal hearing present, Denies dental pain, Reports dysphagia, Denies hearing loss, Denies mouth pain, Denies odynophagia, Denies throat swelling, Denies tongue swelling and Reports other (Dentition adequate) Card Reports no additional complaints Resp Reports no additional complaints GI Denies abdominal pain, Denies melena, Denies bloating, Denies hematochezia, Reports constipation, Denies GI cramping, Reports dysphagia, Denies excessive flatus, Denies early satiety, Reports heartburn, Denies diarrhea, Denies nausea, Denies odynophagia, Denies vomiting and Denies hematemesis Skin/Breast Denies pruritus, Denies lesions, Denies rash and Denies jaundice Neuro Reports Normal hearing present and Denies Abnormal speech present Endo Denies fatigue Aller/Immun Denies throat swelling and Denies tongue swelling Physical Exam Vital Signs: Last Vital Signs Pulse 77 08/22/23 14:06 BP 111/56 L 08/22/23 14:06 BMI result Body Mass Index 15.9 Const General: cooperative, no acute distress, well developed and well groomed Nutritional Appearance: well nourished and thin Orientation/consciousness: oriented to person, oriented to place and oriented to time Limitations: No language barrier HEENT Head: Yes normocephalic and Yes atraumatic Eyes General: appearance normal, both eyes and all related structures Pupils: Equal, round and reactive pupils present Neck Neck: Yes normal visual inspection and Yes no lymphadenopathy Thyroid: Thyroid normal Resp Effort & Inspection: normal respiratory effort and able to speak in complete sentences Auscultation: clear to auscultation bilaterally Cardio Rate: regular rate Rhythm: regular rhythm Heart sounds: Normal, physiologic split S2 sound present Peripheral pulses: radial pulses present and posterior tibial pulses present GI Inspection: No distended and No Abdominal panniculus present Palpation (GI): Soft to palpation, nontender, no guarding, not rigid and No hepatosplenomegaly present Percussion: Yes normal to percussion Auscultation: normal bowel sounds Rectal Exam - Female: deferred Skin General skin exam: no rashes or lesions noted, turgor normal, skin not dry, no jaundice, No spider nevi and no striae Rashes: no rashes Nails: normal Neuro General: oriented to person, oriented to place and oriented to time Cranial nerves: Yes Equal, round and reactive pupils present and Yes Normal hearing present Speech: No Abnormal speech present Extrem General: Yes normal to inspection, No clubbing, No cyanosis and No edema Psych Appearance: grossly normal and well kempt Mental Status: mental status grossly normal Speech and movement: Normal speech and movement present Affect: normal affect Attitude: cooperative Thought process: Normal thought process present and not confabulating Thought content: Normal thought content present Insight: Limited insight present (Psych) Judgement: Limited judgement present (Psych) Assessment & Plan Assessment & Plan (1) Hypotensive esophageal peristalsis: Code(s): K22.4 - Dyskinesia of esophagus Plan: She has not yet been seen at [facility] as they are booking out to March 2024. She is on a wait list. She is not taking the reglan, as it did not help her much. She suffers continued CIC, on LInzess in the distant past, will restart at 145mcg and titrate. Continued care in swallowing needs to be practiced!! ROV 4 weeks. All notes re: her condition printed for her to take to [facility]. (2) GERD (gastroesophageal reflux disease): Code(s): K21.9 - Gastro-esophageal reflux disease without esophagitis (3) Tubular adenoma of colon: Comment: 2018 scope equals 2 TA, 2022 scope equals TA repeat in 5 years Code(s): D12.6 - Benign neoplasm of colon, unspecified (4) Chronic idiopathic constipation: Code(s): K59.04 - Chronic idiopathic constipation Medications: New linaclotide (Linzess) 145 mcg PO QAM 30 caps 6RF K59.04 - Chronic idiopathic constipation On Hold metoclopramide HCl (Reglan) Hold Comment: Doctor's Order 10 mg PO .tidac 90 tabs 3RF K22.4 - Dyskinesia of esophagus Coding Level of Care Code Est Pt Level 3 (65348) Diagnoses Hypotensive esophageal peristalsis K22.4 GERD (gastroesophageal reflux disease) K21.9 Tubular adenoma of colon D12.6 Chronic idiopathic constipation K59.04
== END 2023-08-22 14:46 | disposition home or self-care (01) ==
PROVIDERS: PCP Family Medicine; Visit Provider Nurse Practitioner
DX: K22.4 Dyskinesia of esophagus (principal); K21.9 Gastro-esophageal reflux disease without esophagitis; D12.6 Benign neoplasm of colon, unspecified; K59.04 Chronic idiopathic constipation
CPT/HCPCS: 99213

== ENCOUNTER → 2023-08-22 14:00 | Outpatient (BNVA) | payer MEDICARE, MEDICAID, SELFPAY | PROVIDERS: PCP Family Medicine; Visit Provider Nurse Practitioner | DX: K22.4 Dyskinesia of esophagus (principal); K21.9 Gastro-esophageal reflux disease without esophagitis; K59.04 Chronic idiopathic constipation; Z86.010 Personal history of colon polyps | CPT/HCPCS: 99212 ==

== ENCOUNTER 2023-10-08 13:13 | Outpatient (AMB) | payer MEDICARE, MEDICAID, SELFPAY ==
--- NOTE | 2023-10-08 13:15 | A.OFFVIS_ITS ---
Intake Vital Signs 10/08/23 13:18 Height 5 ft 3.5 in Weight 93 lb 7.616 oz BMI 16.3 BP 124/56 L Blood Pressure Location Lt brachial Position Sitting Pulse 76 Intake Visit Reasons: 4 week follow up Intake Note: Patient presents to in office visit today in 4 weeks follow up of GERD. CC: Patient reports doing well today and denies having any GI concerns. Allergies Penicillins [PENICILLINS] Allergy (Intermediate, Verified 10/08/23 13:20) RASH/SHAKES, hives amoxicillin [Prevpac] Allergy (Unknown, Verified 10/08/23 13:20) Hives clarithromycin [Prevpac] Allergy (Unknown, Verified 10/08/23 13:20) Hives lansoprazole [Prevpac] Allergy (Unknown, Verified 10/08/23 13:20) Hives penicillin V Allergy (Unknown, Verified 10/08/23 13:20) hives and shakes tramadol Adverse Reaction (Unknown, Verified 10/08/23 13:20) Hallucinations HPI 4 week follow up HPI Details Assessment & Plan (1) Hypotensive esophageal peristalsis: Code(s): K22.4 - Dyskinesia of esophagus Plan: She has not yet been seen at [facility] as they are booking out to March 2024. She is on a wait list. She is not taking the reglan, as it did not help her much. She suffers continued CIC, on LInzess in the distant past, will restart at 145mcg and titrate. Continued care in swallowing needs to be practiced!! ROV 4 weeks. All notes re: her condition printed for her to take to [facility]. (2) GERD (gastroesophageal reflux diseas e): Code(s): K21.9 - Gastro-esophageal reflux disease without esophagitis (3) Tubular adenoma of colon: Comment: 2018 scope equals 2 TA, 2022 scope equal s TA repeat in 5 years Code(s): D12.6 - Benign neoplasm of colon, unspecified (4) Chronic idiopathic constipation: Code(s): K59.04 - Chronic idiopathic constipation Medications: New linaclotide (Linze ss) 145 mcg PO QAM 30 caps 6RF K59.04 - Chronic i diopathic constipa tion On Hold metoclopramide HCl (Reglan) Hold Comment: Doctor's Order 10 mg PO .tidac 9 0 tabs 3RF K22.4 - Dyskinesia of esophagus TODAY'S VISIT No progress in terms of her constipation with LInzess 145mcg. Now I want her to re start the reglan tid and we will increase the LInzess to 290 mcg. She continues on her pantoprazole in the morning and famotidine at night for her GERD. ROV4 weeks. She has the [facility] consult coming up in October for her hypotensive esophagus and dysphagia! [facility] Medical History Mitral valve stenosis Urge incontinence of urine Hematuria Tubular adenoma of colon Seropositive rheumatoid arthritis Anemia Abdominal hyperesthesia Breast cancer Constipation GERD (gastroesophageal reflux disease) Surgical History H/O colonoscopy S/P breast lumpectomy Hx of tonsillectomy History of surgery Family History Mother Ovarian cancer Colon cancer Lung cancer Paternal Grandmother Stomach cancer Paternal Aunt Tongue cancer Social History Alcohol intake: never Patient Tobacco Use Status: Never used Tobacco Review of Systems Const Denies fatigue, Denies fever(s), Denies night sweats, Denies poor appetite and Denies weight loss ENT Reports Normal hearing present, Denies dental pain, Reports dysphagia, Denies hearing loss, Denies mouth pain, Denies odynophagia, Denies throat swelling, Denies tongue swelling and Reports other (Dentition adequate) Card Reports no additional complaints Resp Reports no additional complaints GI Denies abdominal pain, Denies melena, Denies bloating, Denies hematochezia, Reports constipation, Denies GI cramping, Reports dysphagia, Denies excessive flatus, Denies early satiety, Reports heartburn, Denies diarrhea, Denies nausea, Denies odynophagia, Denies vomiting and Denies hematemesis Skin/Breast Denies pruritus, Denies lesions, Denies rash and Denies jaundice Neuro Reports Normal hearing present and Denies Abnormal speech present Endo Denies fatigue Aller/Immun Denies throat swelling and Denies tongue swelling Physical Exam Vital Signs: Last Vital Signs Pulse 76 10/08/23 13:18 BP 124/56 L 10/08/23 13:18 BMI result Body Mass Index 16.3 Const General: cooperative, no acute distress, well developed and well groomed Nutritional Appearance: average body habitus and well nourished Orientation/consciousness: oriented to person, oriented to place and oriented to time Limitations: No language barrier HEENT Head: Yes normocephalic and Yes atraumatic Eyes General: appearance normal, both eyes and all related structures Pupils: Equal, round and reactive pupils present Neck Neck: Yes normal visual inspection and Yes no lymphadenopathy Thyroid: Thyroid normal Resp Effort & Inspection: normal respiratory effort and able to speak in complete sentences Auscultation: clear to auscultation bilaterally Cardio Rate: regular rate Rhythm: regular rhythm Heart sounds: Normal, physiologic split S2 sound present Peripheral pulses: radial pulses present and posterior tibial pulses present GI Inspection: No distended and No Abdominal panniculus present Palpation (GI): Soft to palpation, nontender, no guarding, not rigid and No hepatosplenomegaly present Percussion: Yes normal to percussion Auscultation: normal bowel sounds Rectal Exam - Female: deferred Skin General skin exam: no rashes or lesions noted, turgor normal, skin not dry, no jaundice, No spider nevi and no striae Rashes: no rashes Nails: normal Neuro General: oriented to person, oriented to place and oriented to time Cranial nerves: Yes Equal, round and reactive pupils present and Yes Normal hearing present Speech: No Abnormal speech present Extrem General: Yes normal to inspection, No clubbing, No cyanosis and No edema Psych Appearance: grossly normal and well kempt Mental Status: mental status grossly normal Speech and movement: Normal speech and movement present Affect: normal affect Attitude: cooperative Thought process: Normal thought process present and not confabulating Thought content: Normal thought content present Insight: Limited insight present (Psych) Judgement: Limited judgement present (Psych) Assessment & Plan Assessment & Plan (1) Chronic idiopathic constipation: Code(s): K59.04 - Chronic idiopathic constipation Plan: No progress in terms of her constipation with LInzess 145mcg. Now I want her to re start the reglan tid and we will increase the LInzess to 290 mcg. She continues on her pantoprazole in the morning and famotidine at night for her GERD. ROV4 weeks. She has the [facility] consult coming up in October for her hypotensive esophagus and dysphagia! (2) GERD (gastroesophageal reflux disease): Code(s): K21.9 - Gastro-esophageal reflux disease without esophagitis (3) Hypotensive esophageal peristalsis: Code(s): K22.4 - Dyskinesia of esophagus Medications: New linaclotide (Linzess) 290 mcg PO QAM 30 days 30 caps 6RF Discontinued linaclotide (Linzess) Discontinued Reason: Doctor's Order 145 mcg PO QAM 30 caps 6RF K59.04 - Chronic idiopathic constipation Resumed metoclopramide HCl (Reglan) provider aware of possible interaction with prozac and is monitoring 10 mg PO .tidac 90 tabs 3RF K22.4 - Dyskinesia of esophagus metoclopramide HCl (Reglan) 10 mg PO .tidac 90 tabs 3RF K22.4 - Dyskinesia of esophagus Coding Level of Care Code Est Pt Level 3 (12531) Diagnoses Chronic idiopathic constipation K59.04 GERD (gastroesophageal reflux disease) K21.9 Hypotensive esophageal peristalsis K22.4
[2023-10-08 13:18] VITALS: BP 124/56; PULSE 76; BMI 16.3
== END 2023-10-08 13:41 | disposition home or self-care (01) ==
PROVIDERS: PCP Family Medicine; Visit Provider Nurse Practitioner
DX: K59.04 Chronic idiopathic constipation (principal); K21.9 Gastro-esophageal reflux disease without esophagitis; K22.4 Dyskinesia of esophagus
CPT/HCPCS: 99213

== ENCOUNTER → 2023-10-08 13:13 | Outpatient (BNVA) | payer MEDICARE, MEDICAID, SELFPAY | PROVIDERS: PCP Family Medicine; Visit Provider Nurse Practitioner | DX: K59.04 Chronic idiopathic constipation (principal); K21.9 Gastro-esophageal reflux disease without esophagitis; K22.4 Dyskinesia of esophagus | CPT/HCPCS: 99212 ==

== ENCOUNTER 2023-11-07 09:25 | Outpatient (AMB) | payer MEDICARE, MEDICAID, SELFPAY ==
--- NOTE | 2023-11-07 09:27 | A.OFFVIS_ITS ---
Intake Intake Visit Reasons: 1yr follow up Intake Note: Patient presents today for 1 year follow-up on AOB: Meds- Vesicare Allergies to Antibiotic- Penicillin Blood Thinner- None Field Training Agent Required: No Accompanied by: Self / Same As Patient Allergies Penicillins [PENICILLINS] Allergy (Intermediate, Verified 11/07/23 09:40) RASH/SHAKES, hives amoxicillin [Prevpac] Allergy (Unknown, Verified 11/07/23 09:40) Hives clarithromycin [Prevpac] Allergy (Unknown, Verified 11/07/23 09:40) Hives lansoprazole [Prevpac] Allergy (Unknown, Verified 11/07/23 09:40) Hives tramadol Adverse Reaction (Unknown, Verified 11/07/23 09:40) Hallucinations Medication List - Last Reconciled 11/07/23 by Jarek Caballero MD alendronate 70 mg PO QWEEK cholecalciferol (vitamin D3) 50 mcg PO DAILY famotidine (Pepcid) 20 mg PO BEDTIME fluoxetine 40 mg PO DAILY linaclotide (Linzess) 290 mcg PO QAM 30 days mirabegron ER (Myrbetriq) 50 mg PO DAILY pantoprazole 40 mg PO DAILY pramipexole 0.5 mg PO TID sumatriptan succinate 100 mg PO DIRECTED tramadol 100 mg PO BID PRN HPI HPI Comments History of Present Illness Details Madeline is a 58-year-old female who presents today to the office for a follow-up. 11/07/2023- 58 year old female here for fu for OAB s ymptoms, she is up 3-4 times at night.? She is nondiabetic and is a nonsmoker.? Her past surgical history is significant for a total abdominal hysterectomy in 2008 she also had breast cancer and underwent a left breast lumpectomy.??She is prescribed vesicare with improvement in her symptoms. She was last seen by me on 11/07/22 for OAB. Patient states that if she forgets to take the vesicare she will have an urge incontinence accident. In discussion with the patient, she is on Linzess for constipation. I have re viewed with the patient that one of the side effects of Vesicare is constipation and I want to change the medication at this time. 11/07/2023: Evaluation today--UA---leuko cytes: trace; protein: trace; blood: 1 +. 11/07/2032: Plan: Myrbetriq 50 mg daily w as ordered. Patient will call to the office if she does have any symptoms. Follow-up in 6 months. [facility] Medical History Mitral valve stenosis Urge incontinence of urine Hematuria Tubular adenoma of colon Seropositive rheumatoid arthritis Anemia Abdominal hyperesthesia Breast cancer Constipation GERD (gastroesophageal reflux disease) Surgical History H/O colonoscopy S/P breast lumpectomy Hx of tonsillectomy History of surgery Family History Mother Ovarian cancer Colon cancer Lung cancer Paternal Grandmother Stomach cancer Paternal Aunt Tongue cancer Social History Alcohol intake: never Patient Tobacco Use Status: Never used Tobacco Review of Systems Const All systems reviewed & are unremarkable except as noted in HPI and below Reports no additional complaints Eyes Reports no additional complaints ENT Reports no additional complaints Card Denies dyspnea Resp Denies cough and Denies dyspnea GI Reports no additional complaints Reports no additional complaints Musc Reports no additional complaints Skin/Breast Denies rash and Denies unusual bruising Neuro Reports no additional complaints Psych Reports no additional complaints Endo Reports no additional complaints Cem/Lymph Reports no additional complaints Aller/Immun Reports no additional complaints Results AMB Urinalysis, Automated UA Leukoctes 15 Haroon/uL Last Edit by JAGRUTI Cristina on 11/07/23 09:44 UA Nitrite Negative Last Edit by JAGRUTI Cristina on 11/07/23 09:44 UA Urobilinogen 0.2 mg/dL Last Edit by JAGRUTI Cristina on 11/07/23 09:4 4 UA Protein 30 mg/dL Last Edit by JAGRUTI Cristina on 11/07/23 09:44 1+ Lawrence Draper 11/07/23 09:44 UA pH 6.0 Last Edit by JAGRUTI Cristina on 11/07/23 09:44 UA Blood 10 Abelardo/uL Last Edit by JAGRUTI Cristina on 11/07/23 09:44 UA Specific [place] 1.025 Last Edit by LILY CristinaA on 11/07/23 09: 44 UA Ketone Negative Last Edit by JAGRUTI Cristina on 11/07/23 09:44 UA Bilirubin 1 mg/dL Last Edit by JAGRUTI Cristina on 11/07/23 09:44 UA Glucose 0 mg/dL Last Edit by JAGRUTI Cristina on 11/07/23 09:44 Results Reviewed Results Reviewed: Laboratory Last Values Urine pH (Auto) 6.0 11/07/23 09:40 Specific [place] (Auto) 1.025 11/07/23 09:40 Urine Protein (Auto) 30 mg/dL 11/07/23 09:40 Glucose (UA)(Auto) 0 mg/dL 11/07/23 09:40 Urine Ketones (Auto) Negative 11/07/23 09:40 Urine Blood (Auto) 10 Abelardo/uL 11/07/23 09:40 Urine Nitrite (Auto) Negative 11/07/23 09:40 Urine Bilirubin (Auto) 1 mg/dL 11/07/23 09:40 Urine Urobilinogen (Auto) 0.2 mg/dL 11/07/23 09:40 Leukocyte Esterase (Auto) 15 Haroon/uL 11/07/23 09:40 Assessment & Plan Assessment & Plan (1) Urge incontinence of urine: Code(s): N39.41 - Urge incontinence (2) OAB (overactive bladder): Code(s): N32.81 - Overactive bladder Plan Myrbetriq 50 mg daily was ordered. Patient will call to the office if she does have any symptoms. Follow-up in 6 months. Orders: Orders AMB Urinalysis Automated Today Z13.9 - Encounter for screening, unspecified Medications: New mirabegron ER (Myrbetriq) 50 mg PO DAILY 90 tabs 3RF Patient Instructions: The patient had an opportunity to ask questions regarding treatment plan. All questions were answered. Imaging, Laboratory studies and physical exam results were discussed and reviewed in detail. No major barriers to understanding were identified. The patient expressed understanding and agreement with the above treatment plan. The patient is aware they should contact our office by phone for worsening of their current condition or the appearance of new symptoms. Compliance is encouraged with any medications and followup testing that is ordered. It is a privilege to be allowed the opportunity to participate in the urologic care of your patient. If you have any questions or concerns regarding treatment for the above conditions please do not hesitate to contact me. The office telephone contact is [phone]. This note is constructed in part using voice recognition software. While every effort has been made to ensure accuracy general utility machine operator errors may have been included. Yours sincerely, Jarek Caballero MD Coding Level of Care Code Est Pt Level 4 (94518) Diagnoses Urge incontinence of urine N39.41 OAB (overactive bladder) N32.81
== END 2023-11-07 09:50 | disposition home or self-care (01) ==
PROVIDERS: Visit Provider Urology
DX: N39.41 Urge incontinence (principal); N32.81 Overactive bladder; Z13.9 Encounter for screening, unspecified
CPT/HCPCS: 99214

== ENCOUNTER → 2023-11-07 09:25 | Outpatient (BNVA) | payer MEDICARE, MEDICAID, SELFPAY | PROVIDERS: Visit Provider Urology | DX: K21.9 Gastro-esophageal reflux disease without esophagitis (principal); K59.04 Chronic idiopathic constipation; K22.4 Dyskinesia of esophagus; N39.41 Urge incontinence; N32.81 Overactive bladder | CPT/HCPCS: 81003; 99212 ==

== ENCOUNTER 2023-11-07 14:39 | Outpatient (AMB) | payer MEDICARE, MEDICAID, SELFPAY ==
--- NOTE | 2023-11-07 14:42 | A.OFFVIS_ITS ---
Intake Vital Signs 11/07/23 14:51 Height 5 ft 3.5 in Weight 92 lb 9.506 oz BMI 16.1 BP 121/51 L Blood Pressure Location Lt brachial Position Sitting Pulse 80 Intake Visit Reasons: 4 week follow up GERD, CIC Intake Note: Patient presents to in office visit today in 4 weeks follow up of constipation. CC: Patient reports she has not noticed any change since starting higher dose of Linzess. Denies any new concerns today. Allergies Penicillins [PENICILLINS] Allergy (Intermediate, Verified 11/07/23 14:53) RASH/SHAKES, hives amoxicillin [Prevpac] Allergy (Unknown, Verified 11/07/23 14:53) Hives clarithromycin [Prevpac] Allergy (Unknown, Verified 11/07/23 14:53) Hives lansoprazole [Prevpac] Allergy (Unknown, Verified 11/07/23 14:53) Hives tramadol Adverse Reaction (Unknown, Verified 11/07/23 14:53) Hallucinations HPI 4 week follow up GERD, CIC HPI Details Assessment & Plan (1) Chronic idiopathic constipation: Code(s): K59.04 - Chronic idiopathic constipation Plan: No progress in terms of her constipation with LInzess 145mcg. Now I want her to re start the reglan tid and we will increase the LInzess to 290 mcg. She continues on her pantoprazole in the morning and famotidine at night for her GERD. ROV4 weeks. She has the [facility] consult coming up in October for her hypotensive esophagus and dysphagia! (2) GERD (gastroesophageal reflux diseas e): Code(s): K21.9 - Gastro-esophageal reflux disease without esophagitis (3) Hypotensive esophageal peristalsis: Code(s): K22.4 - Dyskinesia of esophagus Medications: New linaclotide (Linze ss) 290 mcg PO QAM 30 days 30 caps 6RF Discontinued linaclotide (Linze ss) Discontinue d Reason: Doctor' s Order 145 mcg PO QAM 30 caps 6RF K59.04 - Chronic i diopathic constipa tion Resumed metoclopramide HCl (Reglan) provi erin aware of possi ble interaction wi th prozac and is m onitoring 10 mg PO .tidac 9 0 tabs 3RF K22.4 - Dyskinesia of esophagus metoclopramide HCl (Reglan) 10 mg PO .tidac 9 0 tabs 3RF K22.4 - Dyskinesia of esophagus TODAYS VISIT For everything is continuing in the same way. [facility] Gastroenterology for her hypertensive esophagus week. It is too bad, we probably should reschedule this appointment until afterwards but Madeline is not disappointed and wants to check in with. She continues on her Linzess 290 micro g along with her pantoprazole in the morning and famotidine at night. She also takes Reglan 10 mg 3 times a day. Return office visit in 6-8 weeks. I gave her my business cards to make sure they fax us record. [facility] Medical History Mitral valve stenosis Urge incontinence of urine Hematuria Tubular adenoma of colon Seropositive rheumatoid arthritis Anemia Abdominal hyperesthesia Breast cancer Constipation GERD (gastroesophageal reflux disease) Surgical History H/O colonoscopy S/P breast lumpectomy Hx of tonsillectomy History of surgery Family History Mother Ovarian cancer Colon cancer Lung cancer Paternal Grandmother Stomach cancer Paternal Aunt Tongue cancer Social History Alcohol intake: never Patient Tobacco Use Status: Never used Tobacco Review of Systems Const Denies fatigue, Denies fever(s), Denies night sweats, Denies poor appetite and Denies weight loss Eyes Details: Classes Reports requires corrective lenses ENT Reports Normal hearing present, Denies dental pain, Reports dysphagia, Denies hearing loss, Denies mouth pain, Denies odynophagia, Denies throat swelling, Denies tongue swelling and Reports other (Dentition adequate) Card Reports no additional complaints Resp Reports no additional complaints GI Denies abdominal pain, Denies melena, Denies bloating, Denies hematochezia, Reports constipation, Denies GI cramping, Reports dysphagia, Denies excessive flatus, Denies early satiety, Reports heartburn, Denies diarrhea, Denies nausea, Denies odynophagia, Denies vomiting and Denies hematemesis Skin/Breast Denies pruritus, Denies lesions, Denies rash and Denies jaundice Neuro Reports Normal hearing present and Denies Abnormal speech present Endo Denies fatigue Aller/Immun Denies throat swelling and Denies tongue swelling Physical Exam Vital Signs: Last Vital Signs Pulse 80 11/07/23 14:51 BP 121/51 L 11/07/23 14:51 BMI result Body Mass Index 16.1 Const General: cooperative, no acute distress, well developed and well groomed Nutritional Appearance: well nourished and thin Orientation/consciousness: oriented to person, oriented to place and oriented to time Limitations: No language barrier HEENT Head: Yes normocephalic and Yes atraumatic Eyes General: appearance normal, both eyes and all related structures Pupils: Equal, round and reactive pupils present Neck Neck: Yes normal visual inspection and Yes no lymphadenopathy Thyroid: Thyroid normal Resp Effort & Inspection: normal respiratory effort and able to speak in complete sentences Auscultation: clear to auscultation bilaterally Cardio Rate: regular rate Rhythm: regular rhythm Heart sounds: Normal, physiologic split S2 sound present Peripheral pulses: radial pulses present and posterior tibial pulses present GI Inspection: No distended and No Abdominal panniculus present Palpation (GI): Soft to palpation, nontender, no guarding, not rigid and No h epatosplenomegaly present Percussion: Yes normal to percussion Auscultation: normal bowel sounds Rectal Exam - Female: deferred Skin General skin exam: no rashes or lesions noted, turgor normal, skin not dry, no jaundice, No spider nevi and no striae Rashes: no rashes Nails: normal Neuro General: oriented to person, oriented to place and oriented to time Cranial nerves: Yes Equal, round and reactive pupils present and Yes Normal hearing present Speech: No Abnormal speech present Extrem General: Yes normal to inspection, No clubbing, No cyanosis and No edema Psych Appearance: grossly normal and well kempt Mental Status: mental status grossly normal Speech and movement: Normal speech and movement present Affect: normal affect Attitude: cooperative Thought process: Normal thought process present and not confabulating Thought content: Normal thought content present Insight: Limited insight present (Psych) Judgement: Limited judgement present (Psych) Results AMB Urinalysis, Automated UA Leukoctes 15 Haroon/uL Last Edit by JAGRUTI Cristina on 11/07/23 09:44 UA Nitrite Negative Last Edit by Lawrence Draper Venus on 11/07/23 09:44 UA Urobilinogen 0.2 mg/dL Last Edit by Lawrence Draper [facility] on 11/07/23 09:4 4 UA Protein 30 mg/dL Last Edit by Lawrence Draper [facility] on 11/07/23 09:44 1+ Lawrence Draper 11/07/23 09:44 UA pH 6.0 Last Edit by Lawrence Draper [facility] on 11/07/23 09:44 UA Blood 10 Abelardo/uL Last Edit by Lawrence Draper [facility] on 11/07/23 09:44 UA Specific [place] 1.025 Last Edit by Lawrence Draper [facility] on 11/07/23 09: 44 UA Ketone Negative Last Edit by Lawrence Draper [facility] on 11/07/23 09:44 UA Bilirubin 1 mg/dL Last Edit by Lawrence Draper [facility] on 11/07/23 09:44 UA Glucose 0 mg/dL Last Edit by Lawrence Draper [facility] on 11/07/23 09:44 Assessment & Plan Assessment & Plan (1) GERD (gastroesophageal reflux disease): Code(s): K21.9 - Gastro-esophageal reflux disease without esophagitis (2) Chronic idiopathic constipation: Code(s): K59.04 - Chronic idiopathic constipation (3) Hypotensive esophageal peristalsis: Code(s): K22.4 - Dyskinesia of esophagus Plan For everything is continuing in the same way. [facility] Gastroenterology for her hypertensive esophagus week. It is too bad, we probably should reschedule this appointment until afterwards but Madeline is not disappointed and wants to check in with. She continues on her Linzess 290 micro g along with her pantoprazole in the morning and famotidine at night. She also takes Reglan 10 mg 3 times a day. Return office visit in 6-8 weeks. I gave her my business cards to make sure they fax us record. Medications: Refilled pantoprazole 40 mg PO DAILY 30 tabs 6RF Coding Level of Care Code Est Pt Level 3 (69153) Diagnoses GERD (gastroesophageal reflux disease) K21.9 Chronic idiopathic constipation K59.04 Hypotensive esophageal peristalsis K22.4
[2023-11-07 14:51] VITALS: BP 121/51; PULSE 80; BMI 16.1
== END 2023-11-07 16:16 | disposition home or self-care (01) ==
PROVIDERS: PCP Family Medicine; Visit Provider Nurse Practitioner
DX: K21.9 Gastro-esophageal reflux disease without esophagitis (principal); K59.04 Chronic idiopathic constipation; K22.4 Dyskinesia of esophagus
CPT/HCPCS: 99213

== ENCOUNTER 2024-05-07 08:50 | Outpatient (AMB) | payer MEDICARE, MEDICAID, SELFPAY ==
--- NOTE | 2024-05-07 08:56 | A.OFFVIS_ITS ---
Intake Visit Reasons: 6m follow up Intake Note: Patient presents today for 6 months follow-up on AOB: Meds- Myrbetriq Allergies to Antibiotic- Penicillin Blood Thinner- None Web Applications Developer Required: No Accompanied by: Self / Same As Patient Allergies Penicillins [PENICILLINS] Allergy (Intermediate, Verified 05/07/24 09:15) RASH/SHAKES, hives amoxicillin [Prevpac] Allergy (Unknown, Verified 05/07/24 09:15) Hives clarithromycin [Prevpac] Allergy (Unknown, Verified 05/07/24 09:15) Hives lansoprazole [Prevpac] Allergy (Unknown, Verified 05/07/24 09:15) Hives tramadol Adverse Reaction (Unknown, Verified 05/07/24 09:15) Hallucinations Medication List - Last Reconciled 05/07/24 by Jarek Caballero MD alendronate 70 mg PO QWEEK cholecalciferol (vitamin D3) 50 mcg PO DAILY famotidine 20 mg PO BEDTIME 90 days fluoxetine 40 mg PO DAILY linaclotide (Linzess) 290 mcg PO QAM 30 days mirabegron ER (Myrbetriq) 50 mg PO DAILY pantoprazole 40 mg PO DAILY pramipexole 0.5 mg PO TID solifenacin (Vesicare) 5 mg PO DAILY sumatriptan succinate 100 mg PO DIRECTED tramadol 100 mg PO BID PRN HPI Comments Details: 05/07/24--Madeline is a 58-year-old female who presents today to the office for a follow-up. She has been on anticholinergic medication for overactive bladder symptoms. She was on VESIcare 10 mg. She is currently on Myrbetriq 50 mg daily. She states that she is still having breakthrough urinary leakage symptoms she describes when washing the dishes she feels bladder spasms. I have discussed combination Myrbetriq 50 mg with VESIcare 5 mg in the evening. I have discussed alternative treatments to consider to include bladder Botox injection. Review of chart: 11/07/2023---58 year old female here for fu for OAB symptoms, she is up 3-4 times at night.? She is nondiabetic and is a nonsmoker.? Her past surgical history is significant for a total abdominal hysterectomy in 2008 she also had breast cancer and underwent a left breast lumpectomy.??She is prescribed vesicare with improvement in her symptoms. She was last seen by me on 11/07/22 for OAB. Patient states that if she forgets to take the vesicare she will have an urge incontinence accident. In discussion with the patient, she is on Linzess for constipation. I have reviewed with the patient that one of the side effects of Vesicare is constipation and I want to change the medication at this time. UA---leukocytes: trace; protein: trace; blood: 1 +. Myrbetriq 50 mg daily was ordered.Patient will call to the office if she does have any symptoms. Follow-up in 6 months. [facility] Medical History Mitral valve stenosis Urge incontinence of urine Hematuria Tubular adenoma of colon Seropositive rheumatoid arthritis Anemia Abdominal hyperesthesia Breast cancer Constipation GERD (gastroesophageal reflux disease) Surgical History H/O colonoscopy S/P breast lumpectomy Hx of tonsillectomy History of surgery Family History Mother Ovarian cancer Colon cancer Lung cancer Paternal Grandmother Stomach cancer Paternal Aunt Tongue cancer Social History Alcohol intake: never Patient Tobacco Use Status: Never used Tobacco Review of Systems Const All systems reviewed & are unremarkable except as noted in HPI and below Reports no additional complaints Eyes Reports no additional complaints ENT Reports no additional complaints Card Reports no additional complaints Resp Reports no additional complaints GI Reports no additional complaints Reports as per HPI Musc Reports no additional complaints Skin/Breast Reports system reviewed and no additional complaints, except as documented Neuro Reports no additional complaints Psych Reports no additional complaints Endo Reports no additional complaints Cem/Lymph Reports no additional complaints Aller/Immun Reports no additional complaints Results AMB Urinalysis, Automated UA Leukoctes 15 Haroon/uL Last Edit by JAGRUTI Cristina on 05/07/24 09:26 UA Nitrite Negative Last Edit by JAGRUTI Cristina on 05/07/24 09:26 UA Urobilinogen 0.2 mg/dL Last Edit by JAGRUTI Cristina on 05/07/24 09:2 6 UA Protein 15 mg/dL Last Edit by JAGRUTI Cristina on 05/07/24 09:26 UA pH 6.0 Last Edit by JAGRUTI Cristina on 05/07/24 09:26 UA Blood 0 Abelardo/uL Last Edit by JAGRUTI Cristina on 05/07/24 09:26 UA Specific [place] 1.020 Last Edit by JAGRUTI Cristina on 05/07/24 09: 26 UA Ketone Negative Last Edit by JAGRUTI Cristina on 05/07/24 09:26 UA Bilirubin 1 mg/dL Last Edit by JAGRUTI Cristina on 05/07/24 09:26 UA Glucose 0 mg/dL Last Edit by JAGRUTI Cristina on 05/07/24 09:26 Results Reviewed Results Reviewed: Laboratory Last Values Urine pH (Auto) 6.0 05/07/24 09:23 Specific [place] (Auto) 1.020 05/07/24 09:23 Urine Protein (Auto) 15 mg/dL 05/07/24 09:23 Glucose (UA)(Auto) 0 mg/dL 05/07/24 09:23 Urine Ketones (Auto) Negative 05/07/24 09:23 Urine Blood (Auto) 0 Abelardo/uL 05/07/24 09:23 Urine Nitrite (Auto) Negative 05/07/24 09:23 Urine Bilirubin (Auto) 1 mg/dL 05/07/24 09:23 Urine Urobilinogen (Auto) 0.2 mg/dL 05/07/24 09:23 Leukocyte Esterase (Auto) 15 Haroon/uL 05/07/24 09:23 Assessment & Plan Assessment & Plan (1) Urge incontinence of urine: Code(s): N39.41 - Urge incontinence Category: Medical (2) OAB (overactive bladder): Code(s): N32.81 - Overactive bladder Category: Medical Plan Combination therapy. Myrbetriq 50 mg in the morning VESIcare 5 mg at bedtime. Orders: Orders AMB Urinalysis Automated 05/07/24 Z13.9 - Encounter for screening, unspecified Medications: New solifenacin (Vesicare) Take one tab daily in the evening 5 mg PO DAILY 90 tabs 3RF Changed From mirabegron ER (Myrbetriq) 50 mg PO DAILY 90 tabs 3RF To mirabegron ER (Myrbetriq) TAKE ONE TAB DAILY IN THE MORNING 50 mg PO DAILY 90 tabs 3RF Patient Instructions: The patient had an opportunity to ask questions regarding treatment plan. The patient expressed understanding and agreement with the above treatment plan. The patient is aware they should contact our office by phone for worsening of their current condition or the appearance of new symptoms. Compliance is encouraged with any medications and followup testing that is ordered. It is a privilege to be allowed the opportunity to participate in the urologic care of your patient. If you have any questions or concerns regarding treatment for the above conditions please do not hesitate to contact me. The office telephone contact is [phone]. This note is constructed in part using voice recognition software. While every effort has been made to ensure accuracy aquarium tank attendant errors may have been included. Yours sincerely, Jarek Caballero MD Coding Level of Care Code Est Pt Level 4 (42466) Diagnoses Urge incontinence of urine N39.41 OAB (overactive bladder) N32.81
== END 2024-05-07 09:34 | disposition home or self-care (01) ==
PROVIDERS: PCP Family Medicine; Visit Provider Urology
DX: N39.41 Urge incontinence (principal); N32.81 Overactive bladder
CPT/HCPCS: 99214

== ENCOUNTER → 2024-05-07 08:50 | Outpatient (BNVA) | payer MEDICARE, MEDICAID, SELFPAY | PROVIDERS: PCP Family Medicine; Visit Provider Urology | DX: N39.41 Urge incontinence (principal); N32.81 Overactive bladder | CPT/HCPCS: 81003; 99212 ==

== ENCOUNTER 2024-05-26 14:10 | Outpatient (REF) | payer MEDICARE, MEDICAID, SELFPAY ==
[2024-05-26 14:50] LABS: Appearance Urine Hazy; Color Urine Yellow; Glucose Urine UA Negative (Negative); Leukocyte Esterase Urine Moderate (2+) (Negative); Nitrite Urine Negative (Negative); Specific Gravity - Urine >= 1.030 (1.005-1.025); UMIC TRIGGER UA YES; Urine Blood Large (3+) (Negative); Urine Ketones Trace mg/dL (Negative); Urine Protein Trace mg/dL (Neg-Trace)
[2024-05-26 14:59] LABS: Bacteria Urine Trace (None Seen); Calcium Oxalate Crystals Urine Present; Hyaline Casts Urine 0-2 /LPF (0-2); Squamous Epithelial Cell Urine 0-2 /HPF (0-2); WBC Clumps Urine Present; WBC Urine >50 /HPF (0-5)
== END 2024-05-26 14:11 | disposition home or self-care (01) ==
LOC: HO.LAB 14:10
PROVIDERS: PCP Family Medicine; Visit Provider Urology
DX: N32.81 Overactive bladder (principal); N39.41 Urge incontinence
CPT/HCPCS: 81001; 87086; 87088; 87186

== ENCOUNTER 2024-11-08 11:30 | Outpatient (AMB) | payer MEDICARE, MEDICAID, SELFPAY ==
--- NOTE | 2024-11-07 20:45 | A.OFFVIS_ITS ---
Intake Visit Reasons: 6m follow up Intake Note: Patient is Present for Follow Up OAB/Med Review Urology Medication: Myrbetriq, Vesicare Antibiotic Allergies: Penicillin, Amoxicillin Blood Thinners: None Third Mate Required: No Accompanied by: Self / Same As Patient Allergies Penicillins [PENICILLINS] Allergy (Intermediate, Verified 11/08/24 11:53) RASH/SHAKES, hives amoxicillin [Prevpac] Allergy (Unknown, Verified 11/08/24 11:53) Hives clarithromycin [Prevpac] Allergy (Unknown, Verified 11/08/24 11:53) Hives lansoprazole [Prevpac] Allergy (Unknown, Verified 11/08/24 11:53) Hives tramadol Adverse Reaction (Unknown, Verified 11/08/24 11:53) Hallucinations Medication List - Last Reconciled 11/08/24 by Jarek Caballero MD alendronate 70 mg PO QWEEK cholecalciferol (vitamin D3) 50 mcg PO DAILY famotidine 20 mg PO BEDTIME 90 days fluoxetine 40 mg PO DAILY linaclotide (Linzess) 290 mcg PO QAM 30 days mirabegron ER (Myrbetriq) 50 mg PO DAILY pantoprazole 40 mg PO DAILY pramipexole 0.5 mg PO TID solifenacin (Vesicare) 5 mg PO DAILY sumatriptan succinate 100 mg PO DIRECTED tramadol 100 mg PO BID PRN HPI Comments Details: 11/08/24--6 mon FU--Madeline is a 59-year-old female who presents today to the office for a follow-up. She has been on anticholinergic medication for overactive bladder symptoms. She was prescribed combination Myrbetriq 50 mg with VESIcare 5 mg in the evening. She states she is doing well, denies irr itative voiding symptoms. Review of chart: 05/07/24--Madeline is a 58-year-old female who presents today to the office for a follow-up. She has been on anticholinergic medication for overactive bladder symptoms. She was on VESIcare 10 mg. She is currently on Myrbetriq 50 mg daily. She states that she is still having breakthrough urinary leakage symptoms she describes when washing the dishes she feels bladder spasms. I have discussed combination Myrbetriq 50 mg with VESIcare 5 mg in the evening. I have discussed alternative treatments to consider to include bladder Botox injection. 11/07/2023---58 year old female here for fu for OAB symptoms, she is up 3-4 times at night.? She is nondiabetic and is a nonsmoker.? Her past surgical history is significant for a total abdominal hysterectomy in 2008 she also had breast cancer and underwent a left breast lumpectomy.??She is prescribed vesicare with improvement in her symptoms. She was last seen by me on 11/07/22 for OAB. Patient states that if she forgets to take the vesicare she will have an urge incontinence accident. In discussion with the patient, she is on Linzess for constipation. I have reviewed with the patient that one of the side effects of Vesicare is constipation and I want to change the medication at this time. UA---leukocytes: trace; protein: trace; blood: 1 +. Myrbetriq 50 mg daily was ordered.Patient will call to the office if she does have any symptoms. Follow-up in 6 months. [facility] Medical History Mitral valve stenosis Urge incontinence of urine Hematuria Tubular adenoma of colon Seropositive rheumatoid arthritis Anemia Abdominal hyperesthesia Breast cancer Constipation GERD (gastroesophageal reflux disease) Surgical History H/O colonoscopy S/P breast lumpectomy Hx of tonsillectomy History of surgery Family History Mother Ovarian cancer Colon cancer Lung cancer Paternal Grandmother Stomach cancer Paternal Aunt Tongue cancer Social History Alcohol intake: never Patient Tobacco Use Status: Never used Tobacco Review of Systems Const All systems reviewed & are unremarkable except as noted in HPI and below Reports no additional complaints Eyes Reports no additional complaints ENT Reports no additional complaints Card Reports no additional complaints Resp Reports no additional complaints GI Reports no additional complaints Reports as per HPI Musc Reports no additional complaints Skin/Breast Reports system reviewed and no additional complaints, except as documented Neuro Reports no additional complaints Psych Reports no additional complaints Endo Reports no additional complaints Cem/Lymph Reports no additional complaints Aller/Immun Reports no additional complaints Office Procedures Post Void Residual Post Residual Void Post Void Residual (PVR): [id number] Void Residual by ultrasound Results AMB Urinalysis, Automated UA Leukoctes 0 Haroon/uL Last Edit by Diamond Hardin [facility] on 11/08/24 12:04 UA Nitrite Negative Last Edit by Diamond Hardin [facility] on 11/08/24 12:04 UA Urobilinogen 0.2 mg/dL Last Edit by Diamond Hardin [facility] on 11/08/24 12:0 4 UA Protein 15 mg/dL Last Edit by Diamond Hardin [facility] on 11/08/24 12:04 UA pH 6.0 Last Edit by Diamond Hardin [facility] on 11/08/24 12:04 UA Blood 0 Abelardo/uL Last Edit by Diamond Hardin [facility] on 11/08/24 12:04 UA Specific [place] 1.020 Last Edit by Diamond Hardin [facility] on 11/08/24 12: 04 UA Ketone Negative Last Edit by Diamond Hardin [facility] on 11/08/24 12:04 UA Bilirubin 1 mg/dL Last Edit by Diamond Hardin [facility] on 11/08/24 12:04 UA Glucose 0 mg/dL Last Edit by Diamond Hardin [facility] on 11/08/24 12:04 Results Reviewed Results Reviewed: Laboratory Last Values Urine pH (Auto) 6.0 11/08/24 12:03 Specific [place] (Auto) 1.020 11/08/24 12:03 Urine Protein (Auto) 15 mg/dL 11/08/24 12:03 Glucose (UA)(Auto) 0 mg/dL 11/08/24 12:03 Urine Ketones (Auto) Negative 11/08/24 12:03 Urine Blood (Auto) 0 Abelardo/uL 11/08/24 12:03 Urine Nitrite (Auto) Negative 11/08/24 12:03 Urine Bilirubin (Auto) 1 mg/dL 11/08/24 12:03 Urine Urobilinogen (Auto) 0.2 mg/dL 11/08/24 12:03 Leukocyte Esterase (Auto) 0 Haroon/uL 11/08/24 12:03 Assessment & Plan Assessment & Plan (1) Urge incontinence of urine: Code(s): N39.41 - Urge incontinence Category: Medical (2) OAB (overactive bladder): Code(s): N32.81 - Overactive bladder Category: Medical Plan Combination therapy. Myrbetriq 50 mg in the morning VESIcare 5 mg at bedtime. FU in one year. Orders: Orders AMB Urinalysis Automated 11/08/24 Z13.9 - Encounter for screening, unspecified AMB Post Void Residual by ultrasound 11/08/24 N32.81 - Overactive bladder Medications: Refilled solifenacin (Vesicare) Take one tab daily in the evening 5 mg PO DAILY 90 tabs 3RF mirabegron ER (Myrbetriq) TAKE ONE TAB DAILY IN THE MORNING 50 mg PO DAILY 90 tabs 3RF Patient Instructions: The patient had an opportunity to ask questions regarding treatment plan. The patient expressed understanding and agreement with the above treatment plan. The patient is aware they should contact our office by phone for worsening of their current condition or the appearance of new symptoms. Compliance is encouraged with any medications and followup testing that is ordered. It is a privilege to be allowed the opportunity to participate in the urologic care of your patient. If you have any questions or concerns regarding treatment for the above conditions please do not hesitate to contact me. The office telephone contact is [phone]. This note is constructed in part using voice recognition software. While every effort has been made to ensure accuracy event lighting specialist errors may have been included. Yours sincerely, Jarek Caballero MD Coding Level of Care Code Est Pt Level 3 (10774) Diagnoses Urge incontinence of urine N39.41 OAB (overactive bladder) N32.81 CPT Codes Post Residual Void - PVR CPT Code: 24438-Kzbm Void Residual by ultrasound ([id number])
== END 2024-11-08 12:31 | disposition home or self-care (01) ==
PROVIDERS: PCP Family Medicine; Visit Provider Urology
DX: N39.41 Urge incontinence (principal); N32.81 Overactive bladder
CPT/HCPCS: 99213

== ENCOUNTER → 2024-11-08 11:30 | Outpatient (BNVA) | payer MEDICARE, MEDICAID, SELFPAY | PROVIDERS: PCP Family Medicine; Visit Provider Urology | DX: N39.41 Urge incontinence (principal); N32.81 Overactive bladder | CPT/HCPCS: 51798; 81003; 99212 ==

== ENCOUNTER 2025-11-10 09:45 | Outpatient (AMB) | payer MEDICARE, MEDICAID, SELFPAY ==
--- NOTE | 2025-11-10 09:53 | A.OFFVIS_ITS ---
Intake Visit Reasons: 1y/follow up (set)UA+PVR) Intake Note: Patient is present today for a 1yr/follow up Urology Medication:Myrbetriq, Solifenacin Antibiotic Allergies:Penicillin, Amoxicillin Blood Thinners: None PVR:0ml Distance Education Coordinator Required: No Accompanied by: Self / Same As Patient Allergies Penicillins (PENICILLINS) Allergy (Intermediate, Verified 11/10/25 09:55) RASH/SHAKES, hives amoxicillin (Prevpac) Allergy (Unknown, Verified 11/10/25 09:55) Hives clarithromycin (Prevpac) Allergy (Unknown, Verified 11/10/25 09:55) Hives lansoprazole (Prevpac) Allergy (Unknown, Verified 11/10/25 09:55) Hives tramadol Adverse Reaction (Unknown, Verified 11/10/25 09:55) Hallucinations HPI Comments Details: 11/10/2025--Madeline is a 60-year-old female who is followed for overactive bladder she is prescribed VESIcare and Myrbetriq. Got called rather quickly so your urine looks excellent everything is nice and clear how are the medication PFSH Medical History Mitral valve stenosis Urge incontinence of urine Hematuria Tubular adenoma of colon Seropositive rheumatoid arthritis Anemia Abdominal hyperesthesia Breast cancer Constipation GERD (gastroesophageal reflux disease) Surgical History H/O colonoscopy S/P breast lumpectomy Hx of tonsillectomy History of surgery Family History Mother Ovarian cancer Colon cancer Lung cancer Paternal Grandmother Stomach cancer Paternal Aunt Tongue cancer Social History Alcohol intake: never Patient Tobacco Use Status: Never used Tobacco Office Procedures Post Void Residual Post Residual Void Post Void Residual (PVR): 0 [id number] Void Residual by ultrasound Results AMB Urinalysis, Automated UA Leukoctes 0 Haroon/uL Last Edit by Elizabeth Chan on 11/10/25 16:33 UA Nitrite Negative Last Edit by Elizabeth Chan on 11/10/25 16:33 UA Urobilinogen 0.2 mg/dL Last Edit by Elizabeth Chan on 11/10/25 16:33 UA Protein 15 mg/dL Last Edit by Elizabeth Chan on 11/10/25 16:33 UA pH 6.0 Last Edit by Elizabeth Chan on 11/10/25 16:33 UA Blood 0 Abelardo/uL Last Edit by Elizabeth Chan on 11/10/25 16:33 UA Specific [place] 1.015 Last Edit by Elizabeth Chan on 11/10/25 16:33 UA Ketone Negative Last Edit by Elizabeth Chan on 11/10/25 16:33 UA Bilirubin 0 mg/dL Last Edit by Elizabeth Chan on 11/10/25 16:33 UA Glucose 0 mg/dL Last Edit by Elizabeth Chan on 11/10/25 16:33 Assessment & Plan Assessment & Plan Orders: Orders AMB Urinalysis Automated Today Z13.9 - Encounter for screening, unspecified AMB Post Void Residual by ultrasound Today N32.81 - Overactive bladder, N39.41 - Urge incontinence Coding CPT Codes Post Residual Void - PVR CPT Code: [id number] Void Residual by ultrasound ([id number])
== END 2025-11-10 10:54 | disposition home or self-care (01) ==
LOC: HO.HUSH 09:45
PROVIDERS: PCP Family Medicine; Visit Provider Urology
DX: Z13.9 Encounter for screening, unspecified (principal)

== ENCOUNTER → 2025-11-10 09:45 | Outpatient (BNVA) | payer MEDICARE, MEDICAID, SELFPAY | PROVIDERS: PCP Family Medicine; Visit Provider Urology | DX: N32.81 Overactive bladder (principal); R31.0 Gross hematuria; N39.41 Urge incontinence; N39.0 Urinary tract infection, site not specified; Z87.440 Personal history of urinary (tract) infections | CPT/HCPCS: 51798; 81003; 99212 ==